=== PATIENT | female | born 1955 | race Caucasian/White ===

== ENCOUNTER 2016-11-10 12:02 | Inpatient (IN) | payer SELFPAY ==
[~2016-11-10] VITALS: Ht 167.6 cm; Wt 110.7 kg
[2016-11-10] VITALS (7 sets, daily range): BP systolic 133–177; BP diastolic 68–78; PULSE 86–99; RESP 22–34; TEMP 98.2–98.7; O2SAT 100
[~2016-11-10 12:02] MED LIST: ALPR.5 PO; CHOL4 PO; FOLI1 PO; HYDR-3533 PO; LEVE500 PO; METH10TA PO; METO25 PO; PROT40TA PO; SERT100 PO; THIA100T PO
[2016-11-10 12:15] LABS: MEAN CORPUSCULAR HGB CONC 28.8 % (32.0-36.0)
[2016-11-10] MEDS ORDERED: ONDANSETRON HCL 4 MG/2 ML VIAL IV PUSH ONE (12:15)
[2016-11-10] MEDS ORDERED: MORPHINE SULFATE 4 MG/ML INJ IV PUSH ONE (12:15)
[2016-11-10] MEDS ORDERED: PANTOPRAZOLE SODIUM 40 MG VIAL IV PUSH ONE (12:15)
[2016-11-10] MEDS: SODIUM CHLOR 0.9% 1000 ML INJ 1,000 ML IV SCH ×2 (12:26→15:21)
[2016-11-10 12:41] LABS: AUTOMATED NEUTROPHIL # 7.6 TH/MM3 (1.8-7.7); BASOPHIL # 0.1 TH/MM3 (0-0.2); BASOPHIL % 1.5 % (0.0-2.0); HEMATOCRIT 21.3 % (35.0-46.0); LYMPH % 10.9 % (9.0-44.0); MEAN CELL VOLUME 60.1 FL (80.0-100.0); MEAN CORPUSCULAR HEMOGLOBIN 17.3 PG (27.0-34.0); MONO % 3.9 % (0.0-8.0); NEUT % 83.7 % (16.0-70.0); PLATELET COUNT 390 TH/MM3 (150-450); RED BLOOD COUNT 3.54 MIL/MM3 (4.00-5.30); RED CELL DISTRIBUTION WIDTH 22.4 % (11.6-17.2); WHITE BLOOD COUNT 9.1 TH/MM3 (4.0-11.0)
[2016-11-10 12:47] LABS: HEMO FLAGS DIFF FINAL
[2016-11-10 13:01] LABS: PROTHROMBIN TIME - PATIENT 11.1 SEC (9.8-11.6)
[2016-11-10 13:03] LABS: ALT (GPT) 24 U/L (10-53); ANION GAP 22 MEQ/L (5-15); BICARBONATE 13.8 MEQ/L (21.0-32.0); BLOOD UREA NITROGEN 16 MG/DL (7-18); CHLORIDE 96 MEQ/L (98-107); GLOMERULAR FILTRATION RATE 56 ML/MIN (>89); POTASSIUM 3.4 MEQ/L (3.5-5.1); SODIUM (NA) 132 MEQ/L (136-145)
[2016-11-10 13:09] LABS: ALKALINE PHOSPHATASE 132 U/L (45-117); AST (GOT) 43 U/L (15-37); CREATINE KINASE 114 U/L (26-192); TOTAL BILIRUBIN ADULT 0.6 MG/DL (0.2-1.0)
--- NOTE | 2016-11-10 13:50 | PD ---
HPI Chief Complaint: Cardiac Complaint Time Seen by Provider: 12:11 Travel History International Travel<30 days: No Contact w/Intl Traveler<30days: No Traveled to known affect area: No History of Present Illness HPI 61-year-old female complains of chest pain and abdominal pain patient states that she started having intermittent chest pain abdominal pain for the past 2 weeks. Patient states that the pain is worse today. Patient has history of EtOH abuse. Last alcoholic drink was this morning. Patient states the pain is substernal pressure pain and sharp pain without radiation. Patient denies palpitation. Patient states that she also has epigastric pain also. Patient states that the epigastric pain is stabbing pain severe pain localized to epigastric area. Patient denies any pain radiation. Patient denies any nausea vomiting diarrhea. Patient has a chronic pain and was seen by pain management in the past. Patient has history of COPD. Patient denies any history of CAD. Patient has history hypertension. Patient denies history diabetes or dyslipidemia. Patient is a nonsmoker. On a scale of 1-10 the pain is a 10. PFSH Past Medical History Anxiety: Yes Depression: Yes Cancer: No Cardiovascular Problems: Yes Cerebrovascular Accident: No Diabetes: No Diminished Hearing: No Endocrine: No Genitourinary: No Hypertension: Yes Immune Disorder: No Musculoskeletal: Yes (CHRONIC BACK PAIN) Neurologic: Yes Psychiatric: Yes Reproductive: No Respiratory: Yes (COPD) Immunizations Current: Yes Seizures: Yes PNEUMOCCOCAL Vaccine (Year): 3 ?: Not Menopausal: Yes : 3 Para: 2 Ectopic : Yes Past Surgical History Pacemaker: No Other Surgery: Yes (UNKNOWN) Social History Alcohol Use: Yes (PINT OF [place]OD[place] DAY) Tobacco Use: No Substance Use: No Allergies-Medications (Allergen,Severity, Reaction): Coded Allergies: Naprosyn (Verified Allergy, Severe, unknown, 11/10/16) Sulfa (Verified Allergy, Severe, Hives, 11/10/16) *MDRO Multi-Drug Resistant Organism (Verified Adverse Reaction, Unknown, ) 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 Reported Meds & Prescriptions Reported Meds & Active Scripts Active Lortab 5 mg/325 mg (Hydrocodone/Acetaminophen 5 mg/325 mg) 1 Tab 1-2 Tab PO Q6H PRN Questran 4 Gm Pkt (Cholestyramine Resin) 4 Gm Soln 4 Gm PO Q6 PRN 14 Days Keppra (Levetriacetam) 500 Mg Tab 500 Mg PO TID 30 Days Vitamin B1 (Thiamine HCl) 100 Mg Tab 100 Mg PO DAILY 30 Days Protonix (Pantoprazole Sodium) 40 Mg Tabdr 40 Mg PO DAILY 30 Days Metoprolol Tartrate 25 mg (Metoprolol Tartrate) 25 Mg Tab 12.5 Mg PO Q12 30 Days Folate 1 Mg Tab (Folic Acid) 1 Mg Tab 1 Mg PO DAILY 30 Days Zoloft (Sertraline HCl) 100 Mg Tab 100 Mg PO DAILY PRN Methadone Hcl (Methadone HCl) 10 Mg Tab 5 Mg PO Q12HR PRN Xanax (Alprazolam) 0.5 Mg Tab 0.5 Mg PO Q8H PRN Review of Systems General / Constitutional: No: Fever Eyes: No: Visual changes HENT: No: Headaches Cardiovascular: Positive: Chest Pain or Discomfort Respiratory: No: Shortness of Breath Gastrointestinal: Positive: Abdominal Pain Genitourinary: No: Dysuria Musculoskeletal: No: Pain Skin: No Rash Neurologic: No: Weakness Psychiatric: No: Depression Endocrine: No: Polydipsia Hematologic/Lymphatic: No: Easy Bruising Physical Exam Narrative GENERAL: Well-nourished, well-developed patient. SKIN: Focused skin assessment warm/dry. HEAD: Normocephalic. EYES: No scleral icterus. No injection or drainage. NECK: Supple, trachea midline. No JVD or lymphadenopathy. CARDIOVASCULAR: Regular rate and rhythm without murmurs, gallops, or rubs. RESPIRATORY: Breath sounds equal bilaterally. No accessory muscle use. GASTROINTESTINAL: Abdomen soft, nondistended. Patient has mild to moderate tenderness on palpation epigastric area. No rebound tenderness. No mass. Rectal exam Hemoccult negative. MUSCULOSKELETAL: No cyanosis, or edema. BACK: Nontender without obvious deformity. No CVA tenderness. Neurologic exam normal. Data Data Last Documented VS Vital Signs Date Time Temp Pulse Resp B/P Pulse Ox O2 Delivery O2 Flow Rate FiO2 11/10/16 12:29 34 100 Nasal Cannula 2 11/10/16 12:29 96 155/68 11/10/16 12:05 98.2 Orders Electrocardiogram (11/10/16 12:11) Complete Blood Count With Diff (11/10/16 12:11) Comprehensive Metabolic Panel (11/10/16 12:11) Creatine Kinase (Cpk) (11/10/16 12:11) Troponin I (11/10/16 12:11) Prothrombin Time / Inr (Pt) (11/10/16 12:11) Act Partial Throm Time (Ptt) (11/10/16 12:11) Lipase (11/10/16 12:11) Urinalysis - C+S If Indicated (11/10/16 12:11) Chest, Single Ap (11/10/16 12:11) Iv Access Insert/Monitor (11/10/16 12:11) Ecg Monitoring (11/10/16 12:11) Oximetry (11/10/16 12:11) Alcohol (Ethanol) (11/10/16 12:11) Sodium Chlor 0.9% 1000 Ml Inj (Ns 1000 M (11/10/16 12:15) Pantoprazole Inj (Protonix Inj) (11/10/16 12:15) Morphine Inj (Morphine Inj) (11/10/16 12:15) Ondansetron Inj (Zofran Inj) (11/10/16 12:15) Ct Abd/Pel W Iv Contrast(Rout) (11/10/16 13:05) Ct Pulmonary Angiogram (11/10/16 13:05) Iohexol 350 Inj (Omnipaque 350 Inj) (11/10/16 13:52) Labs Laboratory Tests Test 11/10/16 11/10/16 12:30 13:56 White Blood Count 9.1 TH/MM3 Red Blood Count 3.54 MIL/MM3 Hemoglobin 6.1 GM/DL Hematocrit 21.3 % Mean Corpuscular Volume 60.1 FL Mean Corpuscular Hemoglobin 17.3 PG Mean Corpuscular Hemoglobin 28.8 % Concent Red Cell Distribution Width 22.4 % Platelet Count 390 TH/MM3 Mean Platelet Volume 8.2 FL Neutrophils (%) (Auto) 83.7 % Lymphocytes (%) (Auto) 10.9 % Monocytes (%) (Auto) 3.9 % Eosinophils (%) (Auto) 0.0 % Basophils (%) (Auto) 1.5 % Neutrophils # (Auto) 7.6 TH/MM3 Lymphocytes # (Auto) 1.0 TH/MM3 Monocytes # (Auto) 0.4 TH/MM3 Eosinophils # (Auto) 0.0 TH/MM3 Basophils # (Auto) 0.1 TH/MM3 CBC Comment DIFF FINAL Differential Comment Prothrombin Time 11.1 SEC Prothromb Time International 1.0 RATIO Ratio Activated Partial 24.0 SEC Thromboplast Time Sodium Level 132 MEQ/L Potassium Level 3.4 MEQ/L Chloride Level 96 MEQ/L Carbon Dioxide Level 13.8 MEQ/L Anion Gap 22 MEQ/L Blood Urea Nitrogen 16 MG/DL Creatinine 1.01 MG/DL Estimat Glomerular Filtration 56 ML/MIN Rate Random Glucose 66 MG/DL Calcium Level 8.5 MG/DL Total Bilirubin 0.6 MG/DL Aspartate Amino Transf 43 U/L (AST/SGOT) Alanine Aminotransferase 24 U/L (ALT/SGPT) Alkaline Phosphatase 132 U/L Total Creatine Kinase 114 U/L Troponin I LESS THAN 0.02 NG/ML Total Protein 9.2 GM/DL Albumin 3.7 GM/DL Lipase 234 U/L Ethyl Alcohol Level 131 MG/DL Urine Color YELLOW Urine Turbidity CLEAR Urine pH 6.0 Urine Specific [place] 1.018 Urine Protein TRACE mg/dL Urine Glucose (UA) NEG mg/dL Urine Ketones 40 mg/dL Urine Occult Blood NEG Urine Nitrite NEG Urine Bilirubin NEG Urine Urobilinogen LESS THAN 2.0 MG/DL Urine Leukocyte Esterase SMALL Urine RBC LESS THAN 1 /hpf Urine WBC 2 /hpf Urine Squamous Epithelial 1 /hpf Cells Microscopic Urinalysis Comment CULT NOT INDICATED MDM Medical Decision Making Medical Screen Exam Complete: Yes Emergency Medical Condition: Yes Interpretation(s) Last Impressions CT Angiography 11/10/16 1305 Signed Impressions: Service Date/Time: Thursday, November 10, 2016 13:34 - CONCLUSION: Negative for central pulmonary emboli. Vamshi Callejas MD FACR Abdomen/Pelvis CT 11/10/16 1305 Signed Impressions: Service Date/Time: Thursday, November 10, 2016 13:37 - CONCLUSION: Degenerative changes in lumbar spine as described above Venous thrombosis as described above with vena cava filter Etiology of epigastric pain is not apparent. Vamshi Callejas MD FACR Chest X-Ray 11/10/16 1211 Signed Impressions: Service Date/Time: Thursday, November 10, 2016 12:47 - CONCLUSION: 1. Mild cardiomegaly. Minimal basilar atelectasis. Prince Jaimes MD 1430 3 PM. CBC WBC 9.1. Hemoglobin 6.1 hematocrit 21.3. MCV 60.1. 83 neutrophil. Sodium 132. Potassium 3.4. Chloride 96. Bicarbonate 13.8. Anion gap 22. BUN 16. Creatinine 1.01. GFR 56. Glucose 66. Troponin is normal. Alcohol 131. UA is negative. Differential Diagnosis Differential diagnosis including angina, CO, PE, pneumothorax, gastritis, PUD, pancreatitis, cholecystitis, colitis, UTI, pyelonephritis, nephrolithiasis. Narrative Course 61-year-old female with chest pain and epigastric abdominal pain. History of EtOH abuse. Ken Arias MD Nov 10, 2016 13:50
[2016-11-10] MEDS ORDERED: IOHEXOL 350 MG/ML 10 ML VIAL (for RAD DIAG) IV ONE (13:52)
--- NOTE | 2016-11-10 13:58 | RADRPT ---
EXAM DATE/TIME: 11/10/2016 13:34 [facility] COMPARISON: No previous studies available for comparison. INDICATIONS : Evaluate for embolism, chest pains, and short of breath. IV CONTRAST: 99 cc Omnipaque 350 (iohexol) IV RADIATION DOSE: 28.05 CTDIvol (mGy) MEDICAL HISTORY : Seizures. Cardiovascular disease Hypertension. SURGICAL HISTORY : None. ENCOUNTER: Initial ACUITY: 1 week PAIN SCALE: 10/10 LOCATION: Left chest TECHNIQUE: Volumetric scanning of the chest was performed using a pulmonary embolism protocol MIP images were re constructed. Using automated exposure control and adjustment of the mA and/or kV according to patien t size, radiation dose was kept as low as reasonably achievable to obtain optimal diagnostic quality images. DICOM format image data is available electronically for review and comparison. FINDINGS: There are no suspicious lung lesions identified. There is no evidence for central pulmonary emboli Moderate LAD calcifications are noted. There is no pericardial effusion. There is no mediastinal ad enopathy. The large hiatal l hernia is noted. CONCLUSION: Negative for central pulmonary emboli. Vamshi Callejas MD FACR on November 10, 2016 at 13:54 Board Certified Radiologist. This report was verified electronically.
--- NOTE | 2016-11-10 14:03 | RADRPT ---
EXAM DATE/TIME: 11/10/2016 13:37 [facility] COMPARISON: CT ABDOMEN & PELVIS W CONTRAST, April 07, 2011, 17:01. INDICATIONS : Shortness of breath, left sided abdominal pain. IV CONTRAST: 99 cc Omnipaque 350 (iohexol) IV ; Cumulative dose for multiple exams. ORAL CONTRAST: No oral contrast ingested. RADIATION DOSE: 28.17 CTDIvol (mGy) ; Combined studies - Thorax/Abdomen/Pelvis MEDICAL HISTORY : Cardiovascular disease. Seizures. Hypertension. SURGICAL HISTORY : None. ENCOUNTER: Initial ACUITY: 1 week PAIN SCALE: 10/10 LOCATION: Left abdominal TECHNIQUE: Volumetric scanning of the abdomen and pelvis was performed. Using automated exposure control and ad justment of the mA and/or kV according to patient size, radiation dose was kept as low as reasonably achievable to obtain optimal diagnostic quality images. DICOM format image data is available electro nically for review and comparison. FINDINGS: LOWER LUNGS: The visualized lower lungs are clear. GE junctional is unremarkable LIVER: Homogeneous density without lesion. There is no dilation of the biliary tree single gallstone is not ed. SPLEEN: Normal size without lesion. PANCREAS: Within normal limits. ADRENAL GLANDS: Within normal limits. R KIDNEY: Normal without stones L KIDNEY: Parapelvic cysts are noted without stones CECUM : The region of the cecum and terminal ileum appear normal. RETROPERITONEAL: There is no adenopathy. Vena cava filter is noted. PELVIS: Scattered diverticuli are noted without diverticulitis. 2 cm right adnexal cyst. ABDOMINAL WALL: Intact without hernia BONE WINDOWS: Degenerative changes are present in the lumbar spine. Nonocclusive thrombus in the right common femoral vein, right iliac vein and lower inferior vena cava . CONCLUSION: Degenerative changes in lumbar spine as described above Venous thrombosis as described above with vena cava filter Etiology of epigastric pain is not apparent. Vamshi Callejas MD FACR on November 10, 2016 at 13:56 Board Certified Radiologist. This report was verified electronically.
--- NOTE | 2016-11-10 14:10 | RADRPT ---
EXAM DATE/TIME: 11/10/2016 12:47 [facility] COMPARISON: CHEST SINGLE AP, October 22, 2014, 22:41. INDICATIONS : Left sided chest pain and shortness of breath since yesterday afternoon. MEDICAL HISTORY : None. SURGICAL HISTORY : None. ENCOUNTER: Initial ACUITY: 1 day PAIN SCORE: 8/10 LOCATION: Left chest and abdomen. FINDINGS: A single view of the chest demonstrates mild cardiomegaly. Mild basilar opacity most characteristic o f atelectasis. No effusion. No pneumothorax. Mild scoliosis.. CONCLUSION: 1. Mild cardiomegaly. Minimal basilar atelectasis. Prince Jaimes MD on November 10, 2016 at 14:06 Board Certified Radiologist. This report was verified electronically.
[2016-11-10 14:11] LABS: BLOOD, URINE NEG (NEG); GLUCOSE,URINE NEG (NEG); KETONE, URINE 40 mg/dL (NEG); NITRITE,URINE NEG (NEG); SQUAMOUS EPITHELIAL CELL URINE 1 /hpf (0-5); URINE COLOR YELLOW (YELLW/STRAW)
[2016-11-10 14:12] LABS: COMMENT (UR) CULT NOT INDICATED; CULTURE IF INDICATED CULT NOT INDICATED
[2016-11-10] MEDS ORDERED: SODIUM BICARBONATE 8.4% INJ 50 MEQ/50 ML SYR IV PUSH ONE (14:45)
[2016-11-10] MEDS ORDERED: SODIUM BICARBONATE IV SCH (14:45)
[2016-11-10] MEDS ORDERED: DEXT 5% IV SCH (14:45)
[2016-11-10] MEDS ORDERED: NACL 0.45% IV SCH (14:45)
[2016-11-10] MEDS: NACL 0.45% IV SCH ×2 (15:30→16:54)
[2016-11-10] MEDS: DEXT 5% IV SCH ×2 (15:30→16:54)
[2016-11-10] MEDS: SODIUM BICARBONATE IV SCH ×2 (15:30→16:54)
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
[2016-11-10] MEDS ORDERED: NALOXONE HCL 0.4 MG/ML AMP IV PRN (15:45)
[2016-11-10] MEDS ORDERED: FLUMAZENIL 0.5 MG/5 ML VIAL IV PUSH PRN (15:45)
[2016-11-10] MEDS ORDERED: LORazepam 2 MG TAB PO PRN (15:45)
[2016-11-10] MEDS ORDERED: LORazepam 2 MG/ML VIAL IV PUSH PRN ×4 (15:45)
[2016-11-10] MEDS ORDERED: ACETAMINOPHEN/HYDROcodone 325 MG/5 MG TAB PO PRN (15:45)
[2016-11-10] MEDS ORDERED: SODIUM CHLORIDE 0.9% FLUSH 10 ML FLUSH IV FLUSH PRN (15:45)
[2016-11-10] MEDS ORDERED: ACETAMINOPHEN 325 MG TAB PO PRN (15:45)
[2016-11-10] MEDS ORDERED: LORazepam 1 MG TAB PO PRN (15:45)
[2016-11-10] MEDS: MULTIVITAMIN TAB PO SCH (16:00)
[2016-11-10] MEDS: FOLIC ACID 1 MG TAB PO SCH (16:00)
[2016-11-10] MEDS: THIAMINE HCL 100 MG TAB PO SCH (16:00)
[2016-11-10] MEDS: D5-1/2 NS + KCL 20 MEQ INJ 1,000 ML IV SCH (16:15)
--- NOTE | 2016-11-10 16:30 | PD.CONS ---
HPI History of Present Illness This is a 61 year old female with hx DVT s/p vena cava filter, presented to ER for chest pain. The pain started a few days ago, anterior left chest region, she cannot describe character, radiates to left flank. The pain was constnat. SHe started drinking ETOH for the pain and then stopped drinking b/c she started throwing up, no blood. She does admit hearburn and reflux and says she is supposed to take medication but doesn't because it is expensive. Takes ambien, lortab, xanax, warfarin. She hasn't been taking any of her medications b/c she canot afford. Denies NSAID use. SHe drinks a pint daily. She c/o postnasal drip making her stomach sour. Denies weight loss. Admits constipation. Denies diarrhea, blood in stool, SHe has had EGD and colonoscopy, thinks in the last year at the [facility]. Polyp was found. She cannot recall further details. 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 Family History noncontributory Social History drinks pint daily no tobacco no illicit drug use Review of Systems Constitutional: DENIES: Fever Ears, nose, mouth, throat: DENIES: Hearing loss Respiratory: DENIES: Cough Cardiovascular: COMPLAINS OF: Chest pain, Lower Extremity Edema, DENIES: Palpitations Gastrointestinal: COMPLAINS OF: Constipation, Nausea, Vomiting, Heartburn, DENIES: Abdominal pain, Black stools, Bloody stools, Diarrhea, Difficulty Swallowing, Hematemesis Genitourinary: DENIES: Hematuria Musculoskeletal: COMPLAINS OF: Back pain Integumentary: DENIES: Rash Neurologic: COMPLAINS OF: Headache Psychiatric: DENIES: Confusion GI Exam Vitals I&O Vital Signs Date Time Temp Pulse Resp B/P Pulse Ox O2 Delivery O2 Flow Rate FiO2 11/10/16 15:59 18 11/10/16 12:29 34 100 Nasal Cannula 2 11/10/16 12:29 96 30 155/68 100 Nasal Cannula 2 11/10/16 12:11 97 22 99 Nasal Cannula 2 11/10/16 12:05 98.2 99 22 164/[address] Angiography 11/10/16 1305 Signed Impressions: Service Date/Time: Thursday, November 10, 2016 13:34 - CONCLUSION: Negative for central pulmonary emboli. Vamshi Callejas MD FACR Abdomen/Pelvis CT 11/10/16 1305 Signed Impressions: Service Date/Time: Thursday, November 10, 2016 13:37 - CONCLUSION: Degenerative changes in lumbar spine as described above Venous thrombosis as described above with vena cava filter Etiology of epigastric pain is not apparent. Vamshi Callejas MD FACR Chest X-Ray 11/10/16 1211 Signed Impressions: Service Date/Time: Thursday, November 10, 2016 12:47 - CONCLUSION: 1. Mild cardiomegaly. Minimal basilar atelectasis. Prince Jaimes MD Laboratory Test 11/10/16 11/10/16 12:30 13:56 White Blood Count 9.1 TH/MM3 Red Blood Count 3.54 MIL/MM3 Hemoglobin 6.1 GM/DL Hematocrit 21.3 % Mean Corpuscular Volume 60.1 FL Mean Corpuscular Hemoglobin 17.3 PG Mean Corpuscular Hemoglobin 28.8 % Concent Red Cell Distribution Width 22.4 % Platelet Count 390 TH/MM3 Mean Platelet Volume 8.2 FL Neutrophils (%) (Auto) 83.7 % Lymphocytes (%) (Auto) 10.9 % Monocytes (%) (Auto) 3.9 % Eosinophils (%) (Auto) 0.0 % Basophils (%) (Auto) 1.5 % Neutrophils # (Auto) 7.6 TH/MM3 Lymphocytes # (Auto) 1.0 TH/MM3 Monocytes # (Auto) 0.4 TH/MM3 Eosinophils # (Auto) 0.0 TH/MM3 Basophils # (Auto) 0.1 TH/MM3 CBC Comment DIFF FINAL Differential Comment Prothrombin Time 11.1 SEC Prothromb Time International 1.0 RATIO Ratio Activated Partial 24.0 SEC Thromboplast Time Sodium Level 132 MEQ/L Potassium Level 3.4 MEQ/L Chloride Level 96 MEQ/L Carbon Dioxide Level 13.8 MEQ/L Anion Gap 22 MEQ/L Blood Urea Nitrogen 16 MG/DL Creatinine 1.01 MG/DL Estimat Glomerular Filtration 56 ML/MIN Rate Random Glucose 66 MG/DL Calcium Level 8.5 MG/DL Total Bilirubin 0.6 MG/DL Aspartate Amino Transf 43 U/L (AST/SGOT) Alanine Aminotransferase 24 U/L (ALT/SGPT) Alkaline Phosphatase 132 U/L Total Creatine Kinase 114 U/L Troponin I LESS THAN 0.02 NG/ML Total Protein 9.2 GM/DL Albumin 3.7 GM/DL Lipase 234 U/L Ethyl Alcohol Level 131 MG/DL Urine Color YELLOW Urine Turbidity CLEAR Urine pH 6.0 Urine Specific [place] 1.018 Urine Protein TRACE mg/dL Urine Glucose (UA) NEG mg/dL Urine Ketones 40 mg/dL Urine Occult Blood NEG Urine Nitrite NEG Urine Bilirubin NEG Urine Urobilinogen LESS THAN 2.0 MG/DL Urine Leukocyte Esterase SMALL Urine RBC LESS THAN 1 /hpf Urine WBC 2 /hpf Urine Squamous Epithelial 1 /hpf Cells Microscopic Urinalysis Comment CULT NOT INDICATED Physical Examination HEENT: PERRL; normocephalic; atraumatic; no jaundice. CHEST: CTA CARDIAC: RRR ABDOMEN: Soft, nondistended, LUQ & epigastric TTP; no hepatosplenomegaly; bowel sounds are present in all four quadrants. EXTREMITIES: No clubbing, cyanosis, or edema. SKIN: Normal; no rash; no jaundice. SMOKING PIPES CLEANER: No focal deficits; alert and oriented times three. Assessment and Plan Plan ASSESSMENT - anemia - severe, microcytic hypochromic. hgb 6.1 on admission, pending transfusion. Denies blood in stool. takes coumadin but has not taken any meds recently b/c she cannot afford them. EGD/colonoscopy distal reflux esophagitis, mild candidiasis in the upper part of the esophagus, 3 cm sliding hiatal hernia, mild to moderate gastritis in the antrum of the stomach, normal duodenum biopsy for celiac, 6 mm flat colon polyp in sigmoid colon, s/p cold snare polypectomy, mild diverticulosis in the descending and sigmoid colon, small internal hemorrhoids, otherwise normal colonoscopy, pathology small bowel biopsy normal, negative for celiac, gastric antrum mild chronic gastritis negative for h. pylori, ge junction squamocolumnar mucosa with mild chronic activity, negative for sanchez' s, sigmoid polyp hyperplastic polyp. Prior to that she did have tubular adenoma in 2013. - n/v- c/o postnasal drip and "sour stomach." no hematemesis. Hx GERD. - atypical chest pain - anterior left chest region, cannot further characterize - LUQ pain - unclear etiology. Lipase WNL. CT 11-10-16--> degenerative changes in lumbar spine, venous thrombosis as described above with vena cava filter, etiology of epigastric pain is not apparent. - left flank pain - CT as above - non occlusive thrombosis - left common femoral vein, right iliac vein, lower inferior vena cava. s/p vena cava filter. PLAN - iron studies - EGD Sunday - clears for now - NPO after midnight Sunday - obtain consents - hemoccult - continue PPI - DT precautions - HH q6h x 4 - transfuse as needed - if neg EGD consider capsule endoscopy - further recommendations to follow This pt seen by myself and Dr Kelly and this note is written on his behalf Mary Betts Nov 10, 2016 16:30
[2016-11-10] MEDS: ACETAMINOPHEN/HYDROcodone 325 MG/5 MG TAB PO PRN ×2 (16:59→21:03)
[2016-11-10] MEDS: levETIRAcetam 500 MG TAB PO SCH (17:46)
[2016-11-10] MEDS: MORPHINE SULFATE 4 MG/ML INJ IV PRN ×2 (17:48→22:41)
[2016-11-10 18:47] LABS: REVIEW FLAG FINAL
[2016-11-10 18:49] LABS: HEMATOCRIT 20.1 % (35.0-46.0)
[2016-11-10 19:07] LABS: ANION GAP 20 MEQ/L (5-15); BICARBONATE 15.4 MEQ/L (21.0-32.0); BLOOD UREA NITROGEN 15 MG/DL (7-18); CHLORIDE 97 MEQ/L (98-107); GLOMERULAR FILTRATION RATE 68 ML/MIN (>89); MAGNESIUM 1.8 MG/DL (1.5-2.5); POTASSIUM 3.7 MEQ/L (3.5-5.1); SODIUM (NA) 132 MEQ/L (136-145)
[2016-11-10 19:11] LABS: CREATINE KINASE 130 U/L (26-192)
[2016-11-10] MEDS: SODIUM CHLORIDE 0.9% FLUSH 10 ML FLUSH IV FLUSH SCH (21:02)
[2016-11-10] MEDS: METOPROLOL TARTRATE 25 MG TAB PO SCH (21:02)
[2016-11-10] MEDS: PANTOPRAZOLE SODIUM 40 MG VIAL IV SCH (21:02)
[2016-11-10] MEDS: ONDANSETRON HCL 4 MG/2 ML VIAL IVP PRN (21:09)
[2016-11-10] MEDS ORDERED: Vancomycin Consult Pharmacy 1 EA OTHER SCH (22:00)
[2016-11-10] MEDS ORDERED: CHLORHEXIDINE GLUCONATE 2 % 1 PACK (2 CLOTHS)(extra cloths) TOPICAL PRN (22:00)
[2016-11-10] MEDS: PIPERACIL-TAZO 3.375 GM PREMIX 50 ML IV SCH (22:00)
[2016-11-10] MEDS ORDERED: PHARMACY ORDERED LAB ONE (22:00)
[2016-11-11] VITALS (13 sets, daily range): BP systolic 112–178; BP diastolic 56–94; PULSE 57–75; RESP 13–28; TEMP 97.4–98.6; O2SAT 90–100
[2016-11-11] MEDS ORDERED: HYDROmorphone HCL PF 1 MG/ML VIAL IV PUSH ONE (01:15)
[2016-11-11] MEDS: D5-1/2 NS + KCL 20 MEQ INJ 1,000 ML IV SCH ×3 (02:15→22:15)
[2016-11-11] MEDS: PIPERACIL-TAZO 3.375 GM PREMIX 50 ML IV SCH ×4 (03:22→22:00)
[2016-11-11] MEDS: VANCOMYCIN INJ 1,600 MG in SODIUM CHLORID 0.9% 500 ML INJ 500 ML IV SCH ×2 (03:22→17:53)
[2016-11-11] MEDS: CHLORHEXIDINE GLUCONATE 2 % 1 PACK (2 CLOTHS)(taper/protocol) TOPICAL SCH (04:00)
[2016-11-11] MEDS: HYDROmorphone HCL PF 1 MG/ML VIAL IV PUSH PRN ×2 (05:24→10:15)
[2016-11-11 06:24] LABS: AUTOMATED NEUTROPHIL # 5.9 TH/MM3 (1.8-7.7); BASOPHIL # 0.1 TH/MM3 (0-0.2); EOSINOPHIL % 0.6 % (0.0-4.0); LYMPH % 14.6 % (9.0-44.0); LYMPHOCYTE # 1.1 TH/MM3 (1.0-4.8); MEAN CORPUSCULAR HEMOGLOBIN 20.7 PG (27.0-34.0); MEAN CORPUSCULAR HGB CONC 30.9 % (32.0-36.0); MONO % 3.9 % (0.0-8.0); NEUT % 79.9 % (16.0-70.0); PLATELET COUNT 290 TH/MM3 (150-450); RED BLOOD COUNT 4.18 MIL/MM3 (4.00-5.30); WHITE BLOOD COUNT 7.4 TH/MM3 (4.0-11.0)
[2016-11-11 06:33] LABS: HEMO FLAGS AUTO DIFF
[2016-11-11 06:48] LABS: ALT (GPT) 19 U/L (10-53); ANION GAP 13 MEQ/L (5-15); AST (GOT) 25 U/L (15-37); BICARBONATE 24.9 MEQ/L (21.0-32.0); BLOOD UREA NITROGEN 11 MG/DL (7-18); CHLORIDE 95 MEQ/L (98-107); GLOMERULAR FILTRATION RATE 67 ML/MIN (>89); MAGNESIUM 1.9 MG/DL (1.5-2.5); POTASSIUM 3.4 MEQ/L (3.5-5.1); SODIUM (NA) 133 MEQ/L (136-145)
[2016-11-11 06:52] LABS: ALKALINE PHOSPHATASE 109 U/L (45-117); CREATINE KINASE 136 U/L (26-192); TOTAL BILIRUBIN ADULT 1.4 MG/DL (0.2-1.0)
[2016-11-11] MEDS: PANTOPRAZOLE SODIUM 40 MG VIAL IV SCH ×2 (08:33→22:27)
[2016-11-11] MEDS: FOLIC ACID 1 MG TAB PO SCH (08:33)
[2016-11-11] MEDS: SODIUM CHLORIDE 0.9% FLUSH 10 ML FLUSH IV FLUSH SCH ×2 (08:33→22:27)
[2016-11-11] MEDS: METOPROLOL TARTRATE 25 MG TAB PO SCH ×2 (08:34→22:27)
[2016-11-11] MEDS: levETIRAcetam 500 MG TAB PO SCH ×3 (08:34→17:52)
[2016-11-11] MEDS: SERTRALINE HCL 100 MG TAB PO SCH (08:34)
[2016-11-11] MEDS: MULTIVITAMIN TAB PO SCH (08:34)
[2016-11-11] MEDS: THIAMINE HCL 100 MG TAB PO SCH (08:34)
[2016-11-11] MEDS: ACETAMINOPHEN/HYDROcodone 325 MG/5 MG TAB PO PRN ×3 (08:35→22:26)
[2016-11-11] MEDS: ONDANSETRON HCL 4 MG/2 ML VIAL IVP PRN (08:35)
[2016-11-11] MEDS ORDERED: POTASSIUM CHLORIDE 10 MEQ CONTROLLED RELEASE TAB PO ONE (08:45)
[2016-11-11 08:51] LABS: OVALOCYTES 1+ (NORMAL); PLATELET ESTIMATE SMEAR NORMAL (NORMAL); PLATELET MORPHOLOGY ENLARGED (NORMAL); SCAN/DIFF AUTO DIFF CONFIRMED
[2016-11-11] MEDS ORDERED: LORazepam 1 MG TAB PO SCH (09:00)
[2016-11-11] MEDS ORDERED: SERTRALINE HCL 100 MG TAB PO SCH (09:00)
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
--- NOTE | 2016-11-11 10:55 | HHI.GIFU ---
Subjective Remarks Resting in bed. Continues to have LUQ pain. States her pain meds are not working well for the pain. Had one episode of vomiting overnight, states this was a green bilious material without blood noted. (Saira Hernandez) Objective Vitals I&O Vital Signs Date Time Temp Pulse Resp B/P Pulse Ox O2 Delivery O2 Flow Rate FiO2 11/11/16 08:22 100 Nasal Cannula 3.00 11/11/16 06:00 68 11/11/16 05:54 20 11/11/16 04:00 60 11/11/16 04:00 98.0 60 15 178/83 97 11/11/16 02:00 70 11/11/16 01:56 20 11/11/16 00:00 98.0 75 28 158/94 100 11/11/16 00:00 75 11/10/16 22:46 28 11/10/16 22:08 98.3 86 32 177/78 100 11/10/16 22:03 28 11/10/16 22:00 87 11/10/16 20:00 98 11/10/16 20:00 98.7 98 24 172/73 100 11/10/16 18:00 99 11/10/16 17:35 98.4 96 26 133/70 100 11/10/16 15:59 18 11/10/16 12:29 34 100 Nasal Cannula 2 11/10/16 12:29 96 30 155/68 100 Nasal Cannula 2 11/10/16 12:11 97 22 99 Nasal Cannula 2 11/10/16 12:05 98.2 99 22 164/72 100 I/O 11/10/16 11/10/16 11/10/16 11/11/16 11/11/16 11/11/16 07:00 15:00 23:00 07:00 15:00 23:00 Intake Total 910 ml 1639 ml Output Total 800 ml 600 ml Balance 110 ml 1039 ml Intake Oral 360 ml 240 ml IV Total 300 ml 1027 ml Packed Cells 250 ml 372 ml Output Urine Total 600 ml 600 ml Emesis 200 ml # Voids 1 2 Laboratory Laboratory Tests Test 11/10/16 11/10/16 11/10/16 11/10/16 12:30 13:56 18:00 18:14 White Blood Count 9.1 Red Blood Count 3.54 Hemoglobin 6.1 5.6 Hematocrit 21.3 20.1 Mean Corpuscular Volume 60.1 Mean Corpuscular Hemoglobin 17.3 Mean Corpuscular Hemoglobin 28.8 Concent Red Cell Distribution Width 22.4 Platelet Count 390 Mean Platelet Volume 8.2 Neutrophils (%) (Auto) 83.7 Lymphocytes (%) (Auto) 10.9 Monocytes (%) (Auto) 3.9 Eosinophils (%) (Auto) 0.0 Basophils (%) (Auto) 1.5 Neutrophils # (Auto) 7.6 Lymphocytes # (Auto) 1.0 Monocytes # (Auto) 0.4 Eosinophils # (Auto) 0.0 Basophils # (Auto) 0.1 CBC Comment DIFF FINAL Differential Comment Prothrombin Time 11.1 Prothromb Time International 1.0 Ratio Activated Partial 24.0 Thromboplast Time Sodium Level 132 132 Potassium Level 3.4 3.7 Chloride Level 96 97 Carbon Dioxide Level 13.8 15.4 Anion Gap 22 20 Blood Urea Nitrogen 16 15 Creatinine 1.01 0.85 Estimat Glomerular Filtration 56 68 Rate Random Glucose 66 59 Calcium Level 8.5 7.9 Total Bilirubin 0.6 Aspartate Amino Transf 43 (AST/SGOT) Alanine Aminotransferase 24 (ALT/SGPT) Alkaline Phosphatase 132 Total Creatine Kinase 114 130 Troponin I LESS THAN 0.02 LESS THAN 0.02 Total Protein 9.2 Albumin 3.7 Lipase 234 Ethyl Alcohol Level 131 Urine Color YELLOW Urine Turbidity CLEAR Urine pH 6.0 Urine Specific [place] 1.018 Urine Protein TRACE Urine Glucose (UA) NEG Urine Ketones 40 Urine Occult Blood NEG Urine Nitrite NEG Urine Bilirubin NEG Urine Urobilinogen LESS THAN 2.0 Urine Leukocyte Esterase SMALL Urine RBC LESS THAN 1 Urine WBC 2 Urine Squamous Epithelial 1 Cells Microscopic Urinalysis Comment CULT NOT INDICATED Nasal Screen MRSA (PCR) MRSA DETECTED Lactic Acid Level 4.1 Phosphorus Level 3.1 Magnesium Level 1.8 B-Type Natriuretic Peptide 48 B-Hydroxybutyrate 3.68 Test 11/10/16 11/11/16 11/11/16 20:42 04:12 06:11 Blood Type A NEGATIVE Antibody Screen NEGATIVE Crossmatch Leukocyte-Reduced Red Blood Cells Blood Bank Comment White Blood Count 7.4 Red Blood Count 4.18 Hemoglobin 8.7 Hematocrit 28.0 Mean Corpuscular Volume 67.0 Mean Corpuscular Hemoglobin 20.7 Mean Corpuscular Hemoglobin 30.9 Concent Red Cell Distribution Width 29.0 Platelet Count 290 Mean Platelet Volume 8.5 Neutrophils (%) (Auto) 79.9 Lymphocytes (%) (Auto) 14.6 Monocytes (%) (Auto) 3.9 Eosinophils (%) (Auto) 0.6 Basophils (%) (Auto) 1.0 Neutrophils # (Auto) 5.9 Lymphocytes # (Auto) 1.1 Monocytes # (Auto) 0.3 Eosinophils # (Auto) 0.0 Basophils # (Auto) 0.1 CBC Comment AUTO DIFF Differential Comment AUTO DIFF CONFIRMED Platelet Estimate NORMAL Platelet Morphology Comment ENLARGED Ovalocytes 1+ Sodium Level 133 Potassium Level 3.4 Chloride Level 95 Carbon Dioxide Level 24.9 Anion Gap 13 Blood Urea Nitrogen 11 Creatinine 0.86 Estimat Glomerular Filtration 67 Rate Random Glucose 74 Calcium Level 7.8 Phosphorus Level 2.9 Magnesium Level 1.9 Total Bilirubin 1.4 Aspartate Amino Transf 25 (AST/SGOT) Alanine Aminotransferase 19 (ALT/SGPT) Alkaline Phosphatase 109 Total Creatine Kinase 136 Troponin I 0.02 Total Protein 8.2 Albumin 3.3 Lipase 173 Lactic Acid Level 1.0 Date/Time Procedure Status Source Growth 11/10/16 18:14 Aerobic Blood Culture Resulted Blood Peripheral Pending 11/10/16 18:14 Anaerobic Blood Culture - Final Resulted Blood Peripheral QNS - SEE AEROBE REPORT Imaging Last Impressions CT Angiography 11/10/16 1305 Signed Impressions: Service Date/Time: Thursday, November 10, 2016 13:34 - CONCLUSION: Negative for central pulmonary emboli. Vamshi Callejas MD FACR Abdomen/Pelvis CT 11/10/16 1305 Signed Impressions: Service Date/Time: Thursday, November 10, 2016 13:37 - CONCLUSION: Degenerative changes in lumbar spine as described above Venous thrombosis as described above with vena cava filter Etiology of epigastric pain is not apparent. Vamshi Callejas MD FACR Chest X-Ray 11/10/16 1211 Signed Impressions: Service Date/Time: Thursday, November 10, 2016 12:47 - CONCLUSION: 1. Mild cardiomegaly. Minimal basilar atelectasis. Prince Jaimes MD Physical Exam HEENT: Normocephalic; atraumatic; no jaundice. CHEST: CTA CARDIAC: RRR. ABDOMEN: Soft, nondistended, LUQ tenderness; no hepatosplenomegaly; bowel sounds are present in all four quadrants. EXTREMITIES: No clubbing, cyanosis, or edema. SKIN: Normal; no rash; no jaundice. CAREER DEVELOPMENT ASSOCIATE: No focal deficits; alert and oriented times three. (HernandezSaira) Assessment and Plan Plan ASSESSMENT - Severe Anemia, microcytic hypochromic. Hgb 6.1/21.3, dropped to 5.6/20.1. Denies blood in stool. Supposed to be on PPI/Coumadin- but has been off of these meds, as she cannot afford them. She was evaluated with EGD/Colonoscopy in May of 2016 which revealed distal reflux esophagitis, mild candidiasis in the upper part of the esophagus, 3 cm sliding hiatal hernia, mild to moderate gastritis in the antrum of the stomach, normal duodenum biopsy for celiac, 6 mm flat colon polyp in sigmoid colon, s/p cold snare polypectomy, mild diverticulosis in the descending and sigmoid colon, small internal hemorrhoids, otherwise normal colonoscopy, pathology small bowel biopsy normal, negative for celiac, gastric antrum mild chronic gastritis negative for h. pylori, ge junction squamocolumnar mucosa with mild chronic activity, negative for sanchez's, sigmoid polyp hyperplastic polyp. Prior to that she did have tubular adenoma in 2013. S/P 2 units PRBC, HH 8.7/28.0. PPI. N/V x 1 overnight- bilious- no obvious bleeding. VSS. She does drink 1 pint of ETOH, but does no hx of varices. Will plan for EGD Sunday. Iron studies/ferritin pending. - N/V, patient attributes this to frequent postnasal drip and "sour stomach." No hematemesis. Hx GERD. Not taking PPI. EGD Sunday. - LUQ pain. Lipase WNL. Abdomen/Pelvis CT (11/10/16)-----> Degenerative changes in lumbar spine as described above Venous thrombosis as described above with vena cava filter Etiology of epigastric pain is not apparent. - Atypical chest pain, anterior left chest/LUQ pain. Not having chest pain at this time, but continues to have LUQ pain. Troponin I okay. - Non occlusive thrombosis - left common femoral vein, right iliac vein, lower inferior vena cava. s/p vena cava filter. Pt has hx of DVT and reports she is supposed to be on coumadin but cannot afford this. - Hyponatremia. Per attending. PLAN - Plan for EGD Sunday - Obtain consents - NPO after MN - Iron Studies, Ferritin - PPI - Monitor HH - Transfuse as needed - Supportive care - Further recommendations - Consider Capsule Endoscopy if EGD if negative - This pt seen by myself and Dr Egan and this note is written on his behalf (Saira Hernandez) Physician Comments patient was seen and examined, agree with above note, plan for EGD Sunday ( Claude Egan MD) Saira Hernandez Nov 11, 2016 10:55 Claude Egan MD Nov 11, 2016 16:50
--- NOTE | 2016-11-11 11:54 | EKG ---
Date Performed: 11/10/2016 Time Performed: 18:25:47 PTAGE: 61 years EKG: SINUS TACHYCARDIA INCOMPLETE RIGHT BUNDLE BRANCH BLOCK Since previous tracing, no significa nt change noted ABNORMAL RHYTHM ECG PREVIOUS TRACING : 11/10/2016 12.07 DOCTOR: Vinh Loomis Interpretating Date/Time 11/11/2016 11:53:30
--- NOTE | 2016-11-11 11:54 | EKG ---
Date Performed: 11/11/2016 Time Performed: 00:33:12 PTAGE: 61 years EKG: Sinus rhythm Since previous tracing, no significant change noted Normal ECG PREVIOUS TRACING : 11/10/2016 18.25 DOCTOR: Vinh Loomis Interpretating Date/Time 11/11/2016 11:53:13
[2016-11-11 11:56] LABS: HEMATOCRIT 26.4 % (35.0-46.0)
[2016-11-11 11:57] LABS: REVIEW FLAG FINAL
--- NOTE | 2016-11-11 12:00 | EKG ---
Date Performed: 11/10/2016 Time Performed: 12:07:57 PTAGE: 61 years EKG: SINUS TACHYCARDIA INCOMPLETE RIGHT BUNDLE BRANCH BLOCK Compared to previous tracing, nonspe cific ST-T changes have resolved. ABNORMAL RHYTHM ECG PREVIOUS TRACING : 10/22/2014 18.44 DOCTOR: Vinh Loomis Interpretating Date/Time 11/11/2016 12:00:12
[2016-11-11] MEDS: chlordiazePOXIDE 25 MG CAP PO SCH ×2 (16:58→22:27)
[2016-11-11 18:39] LABS: TRANSFERRIN IRON PROFILE 336 MG/DL (200-360)
[2016-11-11 18:42] LABS: FERRITIN 18 NG/ML (8-252)
[2016-11-11 21:10] LABS: MEAN CORPUSCULAR HGB CONC 29.7 % (32.0-36.0)
[2016-11-12] VITALS (7 sets, daily range): BP systolic 67–149; BP diastolic 56–81; PULSE 57–76; RESP 17–24; TEMP 97–98.9; O2SAT 95–98
[2016-11-12] MEDS: ACETAMINOPHEN/HYDROcodone 325 MG/5 MG TAB PO PRN ×3 (02:42→21:25)
[2016-11-12] MEDS: CHLORHEXIDINE GLUCONATE 2 % 1 PACK (2 CLOTHS)(taper/protocol) TOPICAL SCH (04:00)
[2016-11-12] MEDS: PIPERACIL-TAZO 3.375 GM PREMIX 50 ML IV SCH (05:16)
[2016-11-12] MEDS: D5-1/2 NS + KCL 20 MEQ INJ 1,000 ML IV SCH (05:17)
[2016-11-12] MEDS: HYDROmorphone HCL PF 1 MG/ML VIAL IV PUSH PRN ×4 (05:17→23:11)
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
[2016-11-12] MEDS: THIAMINE HCL 100 MG TAB PO SCH (08:34)
[2016-11-12] MEDS: FERROUS SULFATE 325 MG (65 MG ELEMENTAL IRON) TAB PO SCH (08:34)
[2016-11-12] MEDS: levETIRAcetam 500 MG TAB PO SCH ×3 (08:34→18:01)
[2016-11-12] MEDS: SERTRALINE HCL 100 MG TAB PO SCH (08:34)
[2016-11-12] MEDS: chlordiazePOXIDE 25 MG CAP PO SCH (08:34)
[2016-11-12] MEDS: FOLIC ACID 1 MG TAB PO SCH (08:34)
[2016-11-12] MEDS: METOPROLOL TARTRATE 25 MG TAB PO SCH ×2 (08:34→21:25)
[2016-11-12] MEDS: MULTIVITAMIN TAB PO SCH (08:34)
[2016-11-12] MEDS: PANTOPRAZOLE SODIUM 40 MG VIAL IV SCH ×2 (08:35→21:25)
[2016-11-12] MEDS: SODIUM CHLORIDE 0.9% FLUSH 10 ML FLUSH IV FLUSH SCH ×2 (08:35→21:25)
[2016-11-12 09:02] LABS: AUTOMATED NEUTROPHIL # 6.3 TH/MM3 (1.8-7.7); BASOPHIL % 0.6 % (0.0-2.0); EOSINOPHIL # 0.3 TH/MM3 (0-0.4); EOSINOPHIL % 3.6 % (0.0-4.0); HEMATOCRIT 29.7 % (35.0-46.0); LYMPH % 11.3 % (9.0-44.0); LYMPHOCYTE # 0.9 TH/MM3 (1.0-4.8); MEAN CELL VOLUME 67.9 FL (80.0-100.0); MEAN CORPUSCULAR HEMOGLOBIN 20.2 PG (27.0-34.0); MONO % 5.1 % (0.0-8.0); NEUT % 79.4 % (16.0-70.0); PLATELET COUNT 250 TH/MM3 (150-450); RED BLOOD COUNT 4.37 MIL/MM3 (4.00-5.30); RED CELL DISTRIBUTION WIDTH 28.9 % (11.6-17.2); WHITE BLOOD COUNT 7.9 TH/MM3 (4.0-11.0)
[2016-11-12 09:08] LABS: HEMO FLAGS AUTO DIFF
[2016-11-12 09:21] LABS: ANION GAP 8 MEQ/L (5-15); AST (GOT) 18 U/L (15-37); BLOOD UREA NITROGEN 9 MG/DL (7-18); CHLORIDE 98 MEQ/L (98-107); GLOMERULAR FILTRATION RATE 60 ML/MIN (>89); SODIUM (NA) 132 MEQ/L (136-145)
[2016-11-12 09:22] LABS: ALT (GPT) 17 U/L (10-53)
[2016-11-12 09:23] LABS: ALKALINE PHOSPHATASE 91 U/L (45-117); TOTAL BILIRUBIN ADULT 0.6 MG/DL (0.2-1.0)
[2016-11-12 10:10] LABS: POLYCHROMASIA 2.4 % (0.0-1.9)
[2016-11-12 10:11] LABS: OVALOCYTES 1+ (NORMAL); SCAN/DIFF AUTO DIFF CONFIRMED
--- NOTE | 2016-11-12 13:31 | HHI.GIFU ---
Subjective Remarks Continues to have LUQ abdominal pain. Nausea and one episode of emesis ( digested food) today. No hematemesis. (Tammy Mancera) Objective Vitals I&O Vital Signs Date Time Temp Pulse Resp B/P Pulse Ox O2 Delivery O2 Flow Rate FiO2 11/12/16 12:00 97.8 62 18 132/81 96 11/12/16 08:00 98.9 60 17 149/78 95 11/12/16 05:39 97.0 57 24 67/ 97 11/11/16 20:00 97.8 70 20 112/56 100 11/11/16 20:00 72 11/11/16 17:21 100 Nasal Cannula 3.00 11/11/16 16:00 97.4 65 18 154/70 100 I/O 11/11/16 11/11/16 11/11/16 11/12/16 11/12/16 11/12/16 07:00 15:00 23:00 07:00 15:00 23:00 Intake Total 1639 ml 975 ml Output Total 600 ml 450 ml Balance 1039 ml 525 ml Intake Oral 240 ml 222 ml IV Total 1027 ml 753 ml Packed Cells 372 ml Output Urine Total 600 ml 450 ml Stool Total 0 ml # Voids 2 2 # Bowel Movements 0 0 Laboratory Laboratory Tests Test 11/12/16 08:24 White Blood Count 7.9 Red Blood Count 4.37 Hemoglobin 8.8 Hematocrit 29.7 Mean Corpuscular Volume 67.9 Mean Corpuscular Hemoglobin 20.2 Mean Corpuscular Hemoglobin 29.7 Concent Red Cell Distribution Width 28.9 Platelet Count 250 Mean Platelet Volume 8.2 Neutrophils (%) (Auto) 79.4 Lymphocytes (%) (Auto) 11.3 Monocytes (%) (Auto) 5.1 Eosinophils (%) (Auto) 3.6 Basophils (%) (Auto) 0.6 Neutrophils # (Auto) 6.3 Lymphocytes # (Auto) 0.9 Monocytes # (Auto) 0.4 Eosinophils # (Auto) 0.3 Basophils # (Auto) 0.0 CBC Comment AUTO DIFF Differential Comment AUTO DIFF CONFIRMED Polychromasia 2.4 Ovalocytes 1+ Haptoglobin 217 Sodium Level 132 Potassium Level 4.0 Chloride Level 98 Carbon Dioxide Level 26.0 Anion Gap 8 Blood Urea Nitrogen 9 Creatinine 0.95 Estimat Glomerular Filtration 60 Rate Random Glucose 111 Calcium Level 8.0 Total Bilirubin 0.6 Aspartate Amino Transf 18 (AST/SGOT) Alanine Aminotransferase 17 (ALT/SGPT) Alkaline Phosphatase 91 Lactate Dehydrogenase 170 Total Protein 7.0 Albumin 2.8 Date/Time Procedure Status Source Growth 11/10/16 18:14 Aerobic Blood Culture - Preliminary Resulted Blood Peripheral NO GROWTH IN 2 DAYS 11/10/16 18:14 Anaerobic Blood Culture - Final Resulted Blood Peripheral QNS - SEE AEROBE REPORT Imaging Last Impressions CT Angiography 11/10/16 1305 Signed Impressions: Service Date/Time: Thursday, November 10, 2016 13:34 - CONCLUSION: Negative for central pulmonary emboli. Vamshi Callejas MD FACR Abdomen/Pelvis CT 11/10/16 1305 Signed Impressions: Service Date/Time: Thursday, November 10, 2016 13:37 - CONCLUSION: Degenerative changes in lumbar spine as described above Venous thrombosis as described above with vena cava filter Etiology of epigastric pain is not apparent. Vamshi Callejas MD FACR Chest X-Ray 11/10/16 1211 Signed Impressions: Service Date/Time: Thursday, November 10, 2016 12:47 - CONCLUSION: 1. Mild cardiomegaly. Minimal basilar atelectasis. Prince Jaimes MD Physical Exam HEENT: PERRLA. Normocephalic; atraumatic; no jaundice. CHEST: CTA CARDIAC: RRR. ABDOMEN: Soft, nondistended, LUQ tenderness; no hepatosplenomegaly; bowel sounds are present x 4 quadrants. EXTREMITIES: No clubbing, cyanosis, or edema. SKIN: Normal; no rash; no jaundice. REPLACER: No focal deficits; alert and oriented x 3 (Tammy Mancera [employer] MACHINE OPERATOR) Assessment and Plan Plan ASSESSMENT - Severe Anemia, microcytic hypochromic. Hgb 6.1/21.3, dropped to 5.6/20.1 (11/10 ). Denies blood in stool. Supposed to be on PPI/Coumadin- but has been off of these meds, as she cannot afford them. She was evaluated with EGD/Colonoscopy in May of 2016 which revealed distal reflux esophagitis, mild candidiasis in the upper part of the esophagus, 3 cm sliding hiatal hernia, mild to moderate gastritis in the antrum of the stomach, normal duodenum biopsy for celiac, 6 mm flat colon polyp in sigmoid colon, s/p cold snare polypectomy, mild diverticulosis in the descending and sigmoid colon, small internal hemorrhoids, otherwise normal colonoscopy, pathology small bowel biopsy normal, negative for celiac, gastric antrum mild chronic gastritis negative for h. pylori, ge junction squamocolumnar mucosa with mild chronic activity, negative for sanchez's, sigmoid polyp hyperplastic polyp. Prior to that she did have tubular adenoma in 2013. S/P 2 units PRBC, HH 8.8/29.7 (11/12) PPI. N/V x 1 today-digested food- no obvious bleeding. VSS. She does drink 1 pint of ETOH, but does no hx of varices. Will plan for EGD Sunday am. Iron 178, TIBC 470, % saturation 37.8, Ferritin 18 - N/V, patient attributes this to frequent postnasal drip and "sour stomach." No hematemesis. Hx GERD. Not taking PPI. EGD Sunday. - LUQ pain. Lipase WNL. Abdomen/Pelvis CT (11/10/16)-----> Degenerative changes in lumbar spine as described above Venous thrombosis as described above with vena cava filter Etiology of epigastric pain is not apparent. - Atypical chest pain, anterior left chest/LUQ pain. Not having chest pain at this time, but continues to have LUQ pain. Troponin I okay. - Non occlusive thrombosis - left common femoral vein, right iliac vein, lower inferior vena cava. s/p vena cava filter. Pt has hx of DVT and reports she is supposed to be on Coumadin but cannot afford this. - Hyponatremia. Per attending. PLAN - Plan for EGD Sunday - Obtain consents - NPO after MN - PPI - Monitor HH - Transfuse as needed - Supportive care - Further recommendations - Consider Capsule Endoscopy if EGD if negative Patient seen and examined by myself and Dr Egan and this note is written on his behalf (Tammy Mancera) Plan patient was seen and examined, agree with above note and plan, also if ED neg may need gastric emptying study. (Claude Egan MD) Tammy Mancera Nov 12, 2016 13:31 Claude Egan MD Nov 12, 2016 14:20
[2016-11-13] VITALS (7 sets, daily range): BP systolic 113–146; BP diastolic 56–77; PULSE 59–66; RESP 18–20; TEMP 97.3–98.2; O2SAT 97–99
[2016-11-13] MEDS: CHLORHEXIDINE GLUCONATE 2 % 1 PACK (2 CLOTHS)(taper/protocol) TOPICAL SCH (04:00)
[2016-11-13] MEDS ORDERED: PHARMACY ORDERED LAB ONE (04:45)
[2016-11-13] MEDS: ACETAMINOPHEN/HYDROcodone 325 MG/5 MG TAB PO PRN ×4 (05:01→16:28)
[2016-11-13] MEDS ORDERED: chlordiazePOXIDE 25 MG CAP PO PRN (08:00)
[2016-11-13 08:31] LABS: HEMATOCRIT 29.2 % (35.0-46.0); MEAN CELL VOLUME 68.3 FL (80.0-100.0); MEAN CORPUSCULAR HEMOGLOBIN 20.5 PG (27.0-34.0); PLATELET COUNT 213 TH/MM3 (150-450); RED BLOOD COUNT 4.27 MIL/MM3 (4.00-5.30); RED CELL DISTRIBUTION WIDTH 30.4 % (11.6-17.2); REVIEW FLAG FINAL; WHITE BLOOD COUNT 7.6 TH/MM3 (4.0-11.0)
[2016-11-13 08:36] LABS: ANION GAP 7 MEQ/L (5-15); AST (GOT) 14 U/L (15-37); BICARBONATE 23.6 MEQ/L (21.0-32.0); BLOOD UREA NITROGEN 11 MG/DL (7-18); CHLORIDE 100 MEQ/L (98-107); GLOMERULAR FILTRATION RATE 63 ML/MIN (>89); MAGNESIUM 1.6 MG/DL (1.5-2.5); POTASSIUM 4.1 MEQ/L (3.5-5.1); SODIUM (NA) 131 MEQ/L (136-145)
[2016-11-13 08:38] LABS: ALT (GPT) 17 U/L (10-53)
[2016-11-13 08:39] LABS: ALKALINE PHOSPHATASE 81 U/L (45-117); TOTAL BILIRUBIN ADULT 0.3 MG/DL (0.2-1.0)
[2016-11-13] MEDS: SODIUM CHLORIDE 0.9% FLUSH 10 ML FLUSH IV FLUSH SCH (09:00)
[2016-11-13] MEDS ORDERED: PROPOFOL 200 MG/20 ML AMP IV PUSH ONE (09:20)
--- NOTE | 2016-11-13 09:31 | HHI.GIFU ---
Subjective Remarks Immediate post procedure note: EGD with biopsy Indication: anemia Meds: MAC Findings: Esophagus: distal GERD Stomach: antral gastritis. Biopsy taken Duodenum: normal. Objective Vitals I&O Vital Signs Date Time Temp Pulse Resp B/P Pulse Ox O2 Delivery O2 Flow Rate FiO2 11/13/16 08:21 98.1 62 19 117/69 98 11/13/16 08:00 97.3 66 20 140/77 99 11/13/16 04:00 98.1 62 18 117/69 98 11/13/16 00:00 98.2 59 18 113/56 98 11/12/16 20:00 97.6 76 18 119/63 98 11/12/16 20:00 73 11/12/16 17:23 98 11/12/16 16:00 98.4 64 18 124/56 98 11/12/16 15:31 20 11/12/16 12:00 97.8 62 18 132/81 96 11/12/16 11:45 20 I/O 11/12/16 11/12/16 11/12/16 11/13/16 11/13/16 11/13/16 07:00 15:00 23:00 07:00 15:00 23:00 Intake Total 240 ml 150 ml Output Total 500 ml Balance 240 ml -350 ml Intake Oral 240 ml 150 ml Output Urine Total 500 ml # Voids 2 3 2 # Bowel Movements 0 1 Laboratory Laboratory Tests Test 11/13/16 07:56 White Blood Count 7.6 Red Blood Count 4.27 Hemoglobin 8.7 Hematocrit 29.2 Mean Corpuscular Volume 68.3 Mean Corpuscular Hemoglobin 20.5 Mean Corpuscular Hemoglobin 30.0 Concent Red Cell Distribution Width 30.4 Platelet Count 213 Mean Platelet Volume 8.3 Sodium Level 131 Potassium Level 4.1 Chloride Level 100 Carbon Dioxide Level 23.6 Anion Gap 7 Blood Urea Nitrogen 11 Creatinine 0.91 Estimat Glomerular Filtration 63 Rate Random Glucose 94 Calcium Level 8.1 Phosphorus Level 2.5 Magnesium Level 1.6 Total Bilirubin 0.3 Aspartate Amino Transf 14 (AST/SGOT) Alanine Aminotransferase 17 (ALT/SGPT) Alkaline Phosphatase 81 Total Protein 6.7 Albumin 2.8 Date/Time Procedure Status Source Growth 11/10/16 18:14 Aerobic Blood Culture - Preliminary Resulted Blood Peripheral NO GROWTH IN 2 DAYS 11/10/16 18:14 Anaerobic Blood Culture - Final Resulted Blood Peripheral QNS - SEE AEROBE REPORT Physical Exam HEENT: PERRLA. Normocephalic; atraumatic; no jaundice. CHEST: CTA CARDIAC: RRR. ABDOMEN: Soft, nondistended, LUQ tenderness; no hepatosplenomegaly; bowel sounds are present x 4 quadrants. EXTREMITIES: No clubbing, cyanosis, or edema. SKIN: Normal; no rash; no jaundice. DIRECTOR QUALITY SYSTEMS: No focal deficits; alert and oriented x 3 Assessment and Plan Plan Imp: Gastritis. GERD. No residual in stomach. Plan: Gastric emptying study. Pavan Kelly MD Nov 13, 2016 09:31 Pavan Kelly MD Nov 13, 2016 09:31
[2016-11-13] MEDS: MULTIVITAMIN TAB PO SCH (10:31)
[2016-11-13] MEDS: THIAMINE HCL 100 MG TAB PO SCH (10:31)
[2016-11-13] MEDS: SERTRALINE HCL 100 MG TAB PO SCH (10:31)
[2016-11-13] MEDS: METOPROLOL TARTRATE 25 MG TAB PO SCH (10:31)
[2016-11-13] MEDS: FOLIC ACID 1 MG TAB PO SCH (10:31)
[2016-11-13] MEDS: FERROUS SULFATE 325 MG (65 MG ELEMENTAL IRON) TAB PO SCH (10:32)
[2016-11-13] MEDS: levETIRAcetam 500 MG TAB PO SCH ×3 (10:32→16:36)
[2016-11-13] MEDS: PANTOPRAZOLE SODIUM 40 MG VIAL IV SCH (10:32)
[2016-11-13] MEDS ORDERED: HYDR-3516 PO (11:58)
[2016-11-13] MEDS ORDERED: PROT40TA PO (11:58)
[2016-11-13] MEDS ORDERED: GNP100TA3 PO (11:58)
[2016-11-13] MEDS ORDERED: LEVE500 PO (11:58)
[2016-11-13] MEDS ORDERED: METO25TA3 PO (11:58)
[2016-11-13] MEDS ORDERED: ZOLO100T PO (11:58)
[2016-11-13] MEDS ORDERED: FERR325T20 PO (11:58)
[2016-11-13] MEDS ORDERED: THERTAB15 PO (11:58)
--- NOTE | 2016-11-13 11:59 | HHI.DCPOC ---
Discharge Care Plan Diagnosis: (1) Alcoholic ketoacidosis (2) Severe anemia (3) Physical deconditioning Goals to Promote Your Health * To prevent worsening of your condition and complications * To maintain your health at the optimal level Directions to Meet Your Goals Take your medications as prescribed Follow your dietary instruction Follow activity as directed Keep your appointments as scheduled Take your immunizations and boosters as scheduled If your symptoms worsen call your PCP, if no PCP go to Urgent Care Center or Emergency Room Smoking is Dangerous to Your Health. Avoid second hand smoke Call the 24-hour hour crisis hotline for domestic abuse at Marcio Suero MD R1 Nov 13, 2016 11:59
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
== END 2016-11-13 17:58 | disposition home or self-care (01) | DRG 812 ==
LOC: NEPE 12:02 → NEDA 15:15 → HIMN 17:10 → N04A 11-11 13:20
PROVIDERS: ADMIT Family Medicine; ATTEND Family Medicine
PROC: 0DB78ZX Excision of Stomach, Pylorus, Via Natural or Artificial Opening Endoscopic, Diagnostic (ICD-10-PCS; 2016-11-09)
PROC: 30233N1 Transfusion of Nonautologous Red Blood Cells into Peripheral Vein, Percutaneous Approach (ICD-10-PCS; principal; 2016-11-10)
DX: D50.9 Iron deficiency anemia, unspecified (principal); E87.2 Acidosis; E87.1 Hypo-osmolality and hyponatremia; I10 Essential (primary) hypertension; J44.9 Chronic obstructive pulmonary disease, unspecified; R07.9 Chest pain, unspecified; F41.9 Anxiety disorder, unspecified; G89.29 Other chronic pain; M54.9 Dorsalgia, unspecified; K29.70 Gastritis, unspecified, without bleeding; F10.20 Alcohol dependence, uncomplicated; K21.9 Gastro-esophageal reflux disease without esophagitis; Z66 Do not resuscitate; Z86.718 Personal history of other venous thrombosis and embolism; Z87.891 Personal history of nicotine dependence; K59.00 Constipation, unspecified; Z86.010 Personal history of colon polyps; F32.9 Major depressive disorder, single episode, unspecified; K57.90 Diverticulosis of intestine, part unspecified, without perforation or abscess without bleeding; R07.89 Other chest pain; R26.2 Difficulty in walking, not elsewhere classified
CPT/HCPCS: 36430; 71010; 71275; 74177; 76937; 80048; 80053; 80307; 81001; 82010; 82550; 82728; 83010; 83540; 83550; 83605; 83615; 83690; 83735; 83880; 84100; 84484; 85014; 85018; 85025; 85027; 85610; 85730; 86850; 86900; 86901; 86920; 87040; 87641; 88305; 93005; 96361; 96374; 96375; C9113; J1170; J2060; J2270; J2405; J2543; J3370; J3480; J7030; J7040; P9016; Q9967

== ENCOUNTER 2017-02-07 15:28 | Emergency (ER) | payer SELFPAY ==
[~2017-02-07] VITALS: Ht 167.6 cm; Wt 80.0 kg
[~2017-02-07 15:28] MED LIST changes: -ALPR.5 PO; -CHOL4 PO; -FOLI1 PO; -HYDR-3533 PO; -METH10TA PO; -METO25 PO; -PROT40TA PO; -SERT100 PO; -THIA100T PO; +ZOLO100T PO
[2017-02-07 16:05] VITALS: BP 93/55; PULSE 101; RESP 16; TEMP 98.2; O2SAT 99
[2017-02-07] MEDS ORDERED: levETIRAcetam 500 MG TAB PO ONE (16:15)
[2017-02-07] MEDS ORDERED: LEVE500 PO (16:17)
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
[2017-02-07 16:38] VITALS: BP 112/62
== END 2017-02-07 16:46 | disposition home or self-care (01) ==
LOC: NEPD 15:28
DX: G40.909 Epilepsy, unspecified, not intractable, without status epilepticus (principal)
CPT/HCPCS: 99283

== ENCOUNTER 2017-04-08 07:33 | Inpatient (IN) | payer SELFPAY ==
[2017-04-08] VITALS (9 sets, daily range): BP systolic 162–188; BP diastolic 85–98; PULSE 82–90; RESP 14–22; TEMP 98.3–98.8; O2SAT 96–100
[~2017-04-08] VITALS: Ht 167.6 cm; Wt 86.3 kg
[2017-04-08] MEDS ORDERED: SODIUM CHLORIDE 0.9% FLUSH 5 ML FLUSH IV FLUSH PRN (07:45)
[2017-04-08] MEDS ORDERED: ALPR2TAB3 PO (07:49)
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
[2017-04-08] MEDS ORDERED: ASPI-516 CHEW (08:05)
--- NOTE | 2017-04-08 08:14 | RADRPT ---
EXAM DATE/TIME: 04/08/2017 08:03 [facility] COMPARISON: CT BRAIN W/O CONTRAST, February 28, 2014, 2:01. CT BRAIN W/O CONTRAST, November 28, 2016, 16:31. INDICATIONS : Fall, altered mental status. RADIATION DOSE: 33.32 CTDIvol (mGy) MEDICAL HISTORY : Seizures. Hypertension. PE SURGICAL HISTORY : IVC filter ENCOUNTER: Initial ACUITY: 1 day PAIN SCALE: 6/10 LOCATION: Bilateral cranial TECHNIQUE: Multiple contiguous axial images were obtained of the head. Using automated exposure control and adj ustment of the mA and/or kV according to patient size, radiation dose was kept as low as reasonably a chievable to obtain optimal diagnostic quality images. DICOM format image data is available electro nically for review and comparison. FINDINGS: CEREBRUM: The ventricles are normal for age. No evidence of midline shift, mass lesion, hemorrhage or acute in farction. No extra-axial fluid collections are seen. Atrophy again noted. POSTERIOR FOSSA: The cerebellum and brainstem are intact. The 4th ventricle is midline. The cerebellopontine angle i s unremarkable. EXTRACRANIAL: There is mucoperiosteal thickening of the paranasal sinuses. Small fluid levels are seen in the maxil chano air cells. SKULL: The calvaria is intact. No evidence of skull fracture. Scattered subcentimeter calvarial lucencies o r long-term stable. CONCLUSION: 1. Chronic findings as above. No bleed or other acute intracranial abnormality. 2. Paranasal sinus disease. Ephraim Durbin MD on April 08, 2017 at 8:10 Board Certified Radiologist. This report was verified electronically.
--- NOTE | 2017-04-08 08:31 | RADRPT ---
EXAM DATE/TIME: 04/08/2017 08:03 [facility] COMPARISON: CT CERVICAL SPINE W/O CONTRAST, March 18, 2014, 17:29. INDICATIONS : Fall, altered mental status. RADIATION DOSE: 21.86 CTDIvol (mGy) MEDICAL HISTORY : Seizures. Hypertension. PE SURGICAL HISTORY : IVC filter ENCOUNTER: Initial ACUITY: 1 day PAIN SCALE: 6/10 LOCATION: neck TECHNIQUE: Volumetric scanning of the cervical spine was performed. Multiplanar reconstructions in the sagittal, coronal and oblique axial planes were performed. Using automated exposure control and adjustment o f the mA and/or kV according to patient size, radiation dose was kept as low as reasonably achievable to obtain optimal diagnostic quality images. DICOM format image data is available electronically f or review and comparison. FINDINGS: Cervical spine alignment is normal. Vertebral bodies have normal height. No cortical break or trabecu lar disruption. Mild osteoarthritis seen anteriorly at C1/C2. Mild to moderate disc space narrowing with mild uncovertebral and facet osteoarthritis seen at C5/C6. There is mild disc space narrowing at C4/C5. CONCLUSION: Intact cervical spine. Ephraim Durbin MD on April 08, 2017 at 8:28 Board Certified Radiologist. This report was verified electronically.
[2017-04-08 09:02] LABS: BLOOD, URINE NEG (NEG); GLUCOSE,URINE NEG (NEG); KETONE, URINE NEG (NEG); NITRITE,URINE NEG (NEG); URINE COLOR LIGHT-YELLOW (YELLW/STRAW)
[2017-04-08 09:22] LABS: COMMENT (UR) CATH-CULT NOT IND; CULTURE IF INDICATED CATH CULTURE NOT IND; SQUAMOUS EPITHELIAL CELL URINE 0-5 /hpf (0-5)
[2017-04-08 10:31] LABS: AUTOMATED NEUTROPHIL # 5.3 TH/MM3 (1.8-7.7); BASOPHIL # 0.1 TH/MM3 (0-0.2); BASOPHIL % 0.9 % (0.0-2.0); EOSINOPHIL # 0.1 TH/MM3 (0-0.4); EOSINOPHIL % 1.9 % (0.0-4.0); HEMATOCRIT 29.4 % (35.0-46.0); HEMO FLAGS DIFF FINAL; LYMPH % 17.5 % (9.0-44.0); LYMPHOCYTE # 1.3 TH/MM3 (1.0-4.8); MEAN CELL VOLUME 82.2 FL (80.0-100.0); MEAN CORPUSCULAR HEMOGLOBIN 26.1 PG (27.0-34.0); MEAN CORPUSCULAR HGB CONC 31.7 % (32.0-36.0); MONO % 5.9 % (0.0-8.0); NEUT % 73.8 % (16.0-70.0); PLATELET COUNT 435 TH/MM3 (150-450); RED BLOOD COUNT 3.58 MIL/MM3 (4.00-5.30); RED CELL DISTRIBUTION WIDTH 15.4 % (11.6-17.2); WHITE BLOOD COUNT 7.2 TH/MM3 (4.0-11.0)
[2017-04-08 10:47] LABS: ANION GAP 7 MEQ/L (5-15); AST (GOT) 9 U/L (15-37); BLOOD UREA NITROGEN 18 MG/DL (7-18); CHLORIDE 101 MEQ/L (98-107); GLOMERULAR FILTRATION RATE 85 ML/MIN (>89); POTASSIUM 3.9 MEQ/L (3.5-5.1); SODIUM (NA) 134 MEQ/L (136-145)
[2017-04-08 10:48] LABS: ALT (GPT) 15 U/L (10-53)
[2017-04-08 10:51] LABS: ALKALINE PHOSPHATASE 65 U/L (45-117); TOTAL BILIRUBIN ADULT 0.2 MG/DL (0.2-1.0)
[2017-04-08 10:53] LABS: ALCOHOL LESS THAN 3 MG/DL (0-5)
--- NOTE | 2017-04-08 12:32 | HHI.HP ---
HPI Service [facility] Primary Care Physician No Primary Care Physician Admission Diagnosis altered mental status, prescription drug overdose Diagnoses: Chief Complaint: AMS s/p fall Travel History International Travel<30 Days: No Contact w/Intl Traveler <30 Da: No Traveled to Known Affected Are: No History of Present Illness Written by Carmen Álvarez, acting as scribe for Dr. Hidalgo on 04/08/17 at 12: 31. This is a 67-year-old female with a past medical history significant for seizure disorder, COPD and previous history of polysubstance abuse and narcotic dependence who presents to the ED status post fall at home. Patient reports that she has fallen multiple times in the past 2 nights. She reports two seizure episodes last night. She endorses loss of consciousness. She denies any associated bowel or bladder incontinence. She denies biting her tongue. She endorses dyspnea with a history of COPD and reports using the nebulizer at home. She denies any chest pain. She recently obtained a general practitioner but does not follow with neurology. She reports occasional alcohol consumption but denies having any alcohol the past 2-3 days. She has a prescription for Xanax 2 mg three times a day as needed. Review of Systems Except as stated in HPI: all other systems reviewed are Neg Past Family Social History Past Medical History Seizure disorder COPD History of alcohol abuse History of narcotic dependence History of previous esophageal stricture status post dilation History of IV drug user Depression Anxiety HTN DVT s/p IVC filter Past Surgical History Cataract surgery Reported Medications Keppra (Levetiracetam) 500 Mg Tab 500 Mg PO BID Aspirin 81 Mg Chew 81 Mg CHEW DAILY Alprazolam 2 Mg Tab 2 Mg PO Q8H PRN Allergies: Coded Allergies: Sulfa (Sulfonamide Antibiotics) (Unverified Allergy, Severe, Hives, ) naproxen (Unverified Allergy, Severe, unknown, 04/08/17) Active Ordered Medications Current Medications Medications (Trade) Dose Ordered Sig/Wayne Route Start Time Stop Time Status Last Admin (NS Flush) 2 ml UNSCH PRN IV FLUSH 04/08/17 07:45 Family History Coronary artery disease Social History Patient has a history of tobacco use in her 20s. She reports occasional EtOH use. Physical Exam Vital Signs Vital Signs Date Time Temp Pulse Resp B/P (MAP) Pulse Ox O2 Delivery O2 Flow Rate FiO2 04/08/17 09:00 87 16 177/92 (120) 99 Room Air 04/08/17 07:49 14 99 Room Air 04/08/17 07:38 98.8 84 16 169/85 (113) 96 Physical Exam GENERAL: This is a well-nourished, well-developed patient, in no apparent distress. Somnolent but answers questions appropriately. SKIN: Superficial abrasion noted on the bridge of the nose. Cool and dry. HEAD: Atraumatic. Normocephalic. No temporal or scalp tenderness. EYES: Pupils equal round and reactive. Extraocular motions intact. No scleral icterus. No injection or drainage. ENT: Nose without bleeding or purulent drainage. Throat without erythema, tonsillar hypertrophy or exudate. Uvula midline. Airway patent. NECK: Trachea midline. No lymphadenopathy. Supple, nontender, no meningeal signs. CARDIOVASCULAR: Regular rate and rhythm without murmurs, gallops, or rubs. RESPIRATORY: Fair air entry. Minimal wheezing noted. GASTROINTESTINAL: Abdomen obese, soft, non-tender, nondistended. No hepato- splenomegaly, or palpable masses. No guarding. MUSCULOSKELETAL: Extremities without clubbing, cyanosis, or edema. No joint tenderness, effusion, or edema noted. No calf tenderness. NEUROLOGICAL: Awake and alert. Able to move all extremities spontaneously. No focal neurologic findings appreciated. Normal speech. Laboratory Laboratory Tests Test 04/08/17 08:30 04/08/17 10:21 Urine Color LIGHT-YELLOW Urine Turbidity CLEAR Urine pH 7.0 Urine Specific Mclaughlin 1.015 Urine Protein NEG Urine Glucose (UA) NEG Urine Ketones NEG Urine Occult Blood NEG Urine Nitrite NEG Urine Bilirubin NEG Urine Urobilinogen LESS THAN 2.0 Urine Leukocyte Esterase NEG Urine Squamous Epithelial Cells 0-5 Microscopic Urinalysis Comment CATH-CULT NOT IND Urine Opiates Screen POS Urine Barbiturates Screen NEG Urine Amphetamines Screen NEG Urine Benzodiazepines Screen POS Urine Cocaine Screen NEG Urine Cannabinoids Screen NEG White Blood Count 7.2 Red Blood Count 3.58 Hemoglobin 9.3 Hematocrit 29.4 Mean Corpuscular Volume 82.2 Mean Corpuscular Hemoglobin 26.1 Mean Corpuscular Hemoglobin Concent 31.7 Red Cell Distribution Width 15.4 Platelet Count 435 Mean Platelet Volume 6.6 Neutrophils (%) (Auto) 73.8 Lymphocytes (%) (Auto) 17.5 Monocytes (%) (Auto) 5.9 Eosinophils (%) (Auto) 1.9 Basophils (%) (Auto) 0.9 Neutrophils # (Auto) 5.3 Lymphocytes # (Auto) 1.3 Monocytes # (Auto) 0.4 Eosinophils # (Auto) 0.1 Basophils # (Auto) 0.1 CBC Comment DIFF FINAL Differential Comment Blood Urea Nitrogen 18 Creatinine 0.70 Random Glucose 86 Total Protein 8.1 Albumin 3.5 Calcium Level 8.9 Alkaline Phosphatase 65 Aspartate Amino Transf (AST/SGOT) 9 Alanine Aminotransferase (ALT/SGPT) 15 Total Bilirubin 0.2 Sodium Level 134 Potassium Level 3.9 Chloride Level 101 Carbon Dioxide Level 26.0 Anion Gap 7 Estimat Glomerular Filtration Rate 85 Ethyl Alcohol Level LESS THAN 3 Result Diagram: 04/08/17 1021 04/08/17 1021 Imaging Last Impressions Head CT 04/08/17 0743 Signed Impressions: Service Date/Time: Saturday, April 08, 2017 08:03 - CONCLUSION: 1. Chronic findings as above. No bleed or other acute intracranial abnormality. 2. Paranasal sinus disease. Ephraim Durbin MD Cervical Spine CT 04/08/17 0000 Signed Impressions: Service Date/Time: Saturday, April 08, 2017 08:03 - CONCLUSION: Intact cervical spine. Ephraim Durbin MD Capaloni VTE Risk Assessment Caprini VTE Risk Assessment: Mod/High Risk (score >= 2) Caprini Risk Assessment Model Point Value = 1 Point Value = 2 Point Value = 3 Point Value = 5 Age 41-60 Minor surgery BMI > 25 kg/m2 Swollen legs Varicose veins or History of unexplained or recurrent spontaneous Oral contraceptives or hormone replacement Sepsis (< 1 month) Serious lung disease, including pneumonia (< 1 month) Abnormal pulmonary function Acute myocardial infarction Congestive heart failure (< 1 month) History of inflammatory bowel disease Medical patient at bed rest Age 61-74 Arthroscopic surgery Major open surgery (> 45 min) Laparoscopic surgery (> 45 min) Malignancy Confined to bed (> 72 hours) Immobilizing plaster cast Central venous access Age >= 75 History of VTE Family history of VTE Factor V Leiden Prothrombin [id number] Lupus anticoagulant Anticardiolipin antibodies Elevated serum homocysteine Heparin-induced thrombocytopenia Other congenital or acquired thrombophilia Stroke (< 1 month) Elective arthroplasty Hip, pelvis, or leg fracture Acute spinal cord injury (< 1 month) Prophylaxis Regimen Total Risk Factor Score Risk Level Prophylaxis Regimen 0-1 Low Early ambulation 2 Moderate Order ONE of the following: *Sequential Compression Device (SCD) *Heparin 5000 units SQ BID 3-4 Higher Order ONE of the following medications: *Heparin 5000 units SQ TID *Enoxaparin/Lovenox 40 mg SQ daily (WT < 150 kg, CrCl > 30 mL/min) *Enoxaparin/Lovenox 30 mg SQ daily (WT < 150 kg, CrCl > 10-29 mL/min) *Enoxaparin/Lovenox 30 mg SQ BID (WT < 150 kg, CrCl > 30 mL/min) AND/OR *Sequential Compression Device (SCD) 5 or more Highest Order ONE of the following medications: *Heparin 5000 units SQ TID (Preferred with Epidurals) *Enoxaparin/Lovenox 40 mg SQ daily (WT < 150 kg, CrCl > 30 mL/min) *Enoxaparin/Lovenox 30 mg SQ daily (WT < 150 kg, CrCl > 10-29 mL/min) *Enoxaparin/Lovenox 30 mg SQ BID (WT < 150 kg, CrCl > 30 mL/min) AND *Sequential Compression Device (SCD) Assessment and Plan Assessment and Plan 67-year-old female with a past medical history significant for seizure disorder , COPD and previous history of polysubstance abuse and narcotic dependence who presents to the ED status post fall at home. AMS s/p fall at home - uncertain etiology; syncope vs seizure activity vs oversedation secondary to benzo and narcotic use/abuse - UDS positive for benzodiazepines and opiates - admit to obs - obtain Keppra level - hold narcotic medications - Neuro checks q4h - 2-D echocardiogram - Holter monitor - Continuous cardiac monitoring - EEG study - Carotid ultrasound - PT eval/tx - Seizure precautions COPD, not in acute exacerbation - Duonebs - monitor respiratory status - Supplemental oxygen as needed to maintain O2 sats above 92% Uncontrolled hypertension -Start low dose amlodipine 5 mg -Vasotec as needed, and monitor blood pressure Anemia - chronic - suspect component of iron deficiency anemia - Obtain iron studies Anxiety - Concern for benzodiazepine abuse - titrate down on benzodiazepine use from Xanax 2 mg TID prn to Xanax 0.5 mg q6h prn History of alcohol abuse - CIWA protocol - monitor for s/sx of EtOH withdrawal - Thiamine/folic acid/MVI daily - seizure precautions Hx of DVT - s/p IVC filter placement DVT prophylaxis - chemoprophylaxis contraindicated due to history of anemia - bilateral SCD/BETO hose Discussed Condition With nursing staff, patient, ED physician This note was transcribed by stephanie Álvarez I, Dr. Mellisa Hidalgo personally performed the history, physical exam, and medical decision making; and confirmed the accuracy of the information in the transcribed note. Authenticated by Dr. Mellisa Hidalgo on 04/08/17 at 12:45. Carmen Álvarez Apr 08, 2017 12:32 Mellisa Hidalgo MD Apr 08, 2017 12:36
[2017-04-08] MEDS ORDERED: RESP: ALBUTEROL 2.5 MG/IPRATROPIUM 0.5 MG NEB (PRN) NEB (12:45)
--- NOTE | 2017-04-08 12:52 | EKG ---
Date Performed: 04/08/2017 Time Performed: 07:56:04 PTAGE: 61 years EKG: Sinus rhythm BORDERLINE LEFT AXIS DEVIATION Compared to prior tracing no significant change BORDERLINE ECG PREVIOUS TRACING : 11/11/2016 00.33 DOCTOR: Vinh Loomis Interpretating Date/Time 04/08/2017 12:51:47
--- NOTE | 2017-04-08 15:09 | RADRPT ---
EXAM DATE/TIME: 04/08/2017 14:20 [facility] COMPARISON: No previous studies available for comparison. INDICATIONS : Syncope. MEDICAL HISTORY : Hypercholesterolemia. Hypertension. Neck pain. Seizures. Anticoagulant therapy. Pulmonary embolism. Ectopic . Anxiety. Depression. MRSA. C-DIFF. SURGICAL HISTORY : IVC filter. Left arm and ankle surgery. Left knee surgery. ENCOUNTER: Initial ACUITY: 1 day PAIN SCORE: 0/10 LOCATION: Bilateral neck PEAK SYSTOLIC VELOCITIES (cm/sec): ICA/CCA RATIO: Right: 2.0 Left: 2.6 ICA: Right: 81.2 Left: 139.3 CCA: Right: 39.8 Left: 53.4 ECA: Right: 64.4 Left: 55.5 VERTEBRAL: Right: 43.5 antegrade Left: 75.3 antegrade Elevated flow velocities and ICA/CCA ratios have been found to correlate with increased degrees of vessel stenosis, calculated as percentage of diameter relative to a normal segment of distal ICA/CCA FINDINGS: Antegrade flow of bilateral vertebral arteries. Mild elevated velocity and ratio on the left correspo nding to an estimated 50-69% stenosis. Grayscale images demonstrate mild soft plaque deposition of th e external and internal carotid arteries. On the right grayscale images demonstrates no significant p laque deposition. Velocity is normal. CONCLUSION: No hemodynamically significant stenosis. Geraldo Brown MD on April 08, 2017 at 15:05 Board Certified Radiologist. This report was verified electronically.
[2017-04-08] MEDS ORDERED: LORazepam 1 MG TAB PO PRN (15:15)
[2017-04-08] MEDS ORDERED: FLUMAZENIL 0.5 MG/5 ML VIAL IV PUSH PRN (15:15)
[2017-04-08] MEDS ORDERED: LORazepam 2 MG TAB PO PRN (15:15)
[2017-04-08] MEDS ORDERED: THIAMINE HCL 100 MG TAB PO ONE (15:15)
[2017-04-08] MEDS ORDERED: LORazepam 2 MG/ML VIAL IV PUSH PRN ×4 (15:15)
[2017-04-08] MEDS ORDERED: MULTIVITAMIN TAB PO ONE (15:15)
[2017-04-08] MEDS ORDERED: FOLIC ACID 1 MG TAB PO ONE (15:15)
[2017-04-08] MEDS: FOLIC ACID 1 MG TAB PO SCH (17:36)
[2017-04-08] MEDS: THIAMINE HCL 100 MG TAB PO SCH (17:36)
[2017-04-08] MEDS: MULTIVITAMIN TAB PO SCH (17:36)
[2017-04-08] MEDS: amLODIPine BESYLATE 5 MG TAB PO SCH (17:37)
[2017-04-08] MEDS ORDERED: ENALAPRILAT 1.25 MG/ML VIAL IV PUSH PRN (17:45)
[2017-04-08] MEDS: SODIUM CHLOR 0.9% 1000 ML INJ 1,000 ML IV SCH (18:55)
[2017-04-08 19:09] LABS: PROTHROMBIN TIME - PATIENT 10.7 SEC (9.8-11.6)
[2017-04-08] MEDS: RESP: ALBUTEROL 2.5 MG/IPRATROPIUM 0.5 MG NEB (SCH) NEB (19:25)
[2017-04-09] VITALS (7 sets, daily range): BP systolic 134–185; BP diastolic 74–102; PULSE 80–88; RESP 18–20; TEMP 97.3–98.7; O2SAT 94–100
--- NOTE | 2017-04-09 05:06 | MG ---
cc: KESHA VERONICA M.D. Lab No: [id number] Date: 04/08/2017 Age: Sex: F Race: NOTE Patient noted be snoring. CT negative. Small sharps bilaterally. Seizure disorder. Polysubstance. FINDINGS The recording shows symmetric sleep spindles. Some alpha waves are noted which a diffuse and synchronous and symmetric. Basically the whole recording is during sleep. No epileptiform or seizure activity was noted. There were no hemisphere asymmetries. No sharp waves were noted. IMPRESSION Normal Stage II sleep EEG. No evidence for a focal or diffuse abnormality. MD BRIDGET Khan/SSB /9:47 PM /5:05 AM
[2017-04-09 06:26] LABS: TRANSFERRIN IRON PROFILE 337 MG/DL (200-360)
[2017-04-09 06:51] LABS: FERRITIN 8 NG/ML (8-252)
[2017-04-09] MEDS: SODIUM CHLOR 0.9% 1000 ML INJ 1,000 ML IV SCH ×3 (06:55→22:29)
[2017-04-09] MEDS: RESP: ALBUTEROL 2.5 MG/IPRATROPIUM 0.5 MG NEB (SCH) NEB (07:46)
[2017-04-09] MEDS ORDERED: PILL SPLITTER OTHER PRN (08:15)
[2017-04-09] MEDS: MULTIVITAMIN TAB PO SCH (09:06)
[2017-04-09] MEDS: amLODIPine BESYLATE 5 MG TAB PO SCH (09:07)
[2017-04-09] MEDS: FOLIC ACID 1 MG TAB PO SCH (09:07)
[2017-04-09] MEDS: THIAMINE HCL 100 MG TAB PO SCH (09:07)
[2017-04-09] MEDS: FERROUS SULFATE 325 MG (65 MG ELEMENTAL IRON) TAB PO SCH ×2 (09:16→22:28)
[2017-04-09] MEDS: ASCORBIC ACID 500 MG TAB PO SCH ×2 (09:16→22:28)
[2017-04-09 12:19] LABS: AUTOMATED NEUTROPHIL # 4.9 TH/MM3 (1.8-7.7); BASOPHIL # 0.1 TH/MM3 (0-0.2); BASOPHIL % 1.1 % (0.0-2.0); EOSINOPHIL # 0.1 TH/MM3 (0-0.4); EOSINOPHIL % 1.4 % (0.0-4.0); HEMATOCRIT 28.2 % (35.0-46.0); HEMO FLAGS DIFF FINAL; LYMPH % 17.2 % (9.0-44.0); LYMPHOCYTE # 1.1 TH/MM3 (1.0-4.8); MEAN CELL VOLUME 80.5 FL (80.0-100.0); MEAN CORPUSCULAR HEMOGLOBIN 26.6 PG (27.0-34.0); NEUT % 75.3 % (16.0-70.0); PLATELET COUNT 444 TH/MM3 (150-450); RED CELL DISTRIBUTION WIDTH 15.2 % (11.6-17.2); WHITE BLOOD COUNT 6.5 TH/MM3 (4.0-11.0)
[2017-04-09 12:50] LABS: BICARBONATE 23.8 MEQ/L (21.0-32.0); POTASSIUM 3.7 MEQ/L (3.5-5.1)
--- NOTE | 2017-04-09 14:44 | HHI.PR ---
Subjective Remarks patient on the commode moving bowel She denied any dizziness or lightheaded(or chest pain or short of breath Objective Vitals Vital Signs Date Time Temp Pulse Resp B/P (MAP) Pulse Ox O2 Delivery O2 Flow Rate FiO2 04/09/17 08:36 97.5 88 19 185/98 (127) 97 04/09/17 07:48 99 04/09/17 07:01 86 04/09/17 00:59 98.7 88 18 182/102 (128) 99 04/08/17 19:49 98.7 90 18 188/88 (121) 100 04/08/17 15:29 98.3 88 22 187/98 (127) 99 I/O 04/08/17 04/08/17 04/08/17 04/09/17 04/09/17 04/09/17 07:00 15:00 23:00 07:00 15:00 23:00 Intake Total 840 ml Balance 840 ml Intake Oral 840 ml # Voids 1 # Bowel Movements 1 Result Diagram: 04/09/17 1055 04/09/17 1055 Objective Remarks GENERAL: This is a well-nourished, well-developed patient, in no apparent distress. Somnolent but answers questions appropriately. SKIN: Superficial abrasion noted on the bridge of the nose. Cool and dry. HEAD: Atraumatic. Normocephalic. No temporal or scalp tenderness. EYES: Pupils equal round and reactive. Extraocular motions intact. No scleral icterus. No injection or drainage. ENT: Nose without bleeding or purulent drainage. Throat without erythema, tonsillar hypertrophy or exudate. Uvula midline. Airway patent. NECK: Trachea midline. No lymphadenopathy. Supple, nontender, no meningeal signs. CARDIOVASCULAR: Regular rate and rhythm without murmurs, gallops, or rubs. RESPIRATORY: Fair air entry. Minimal wheezing noted. GASTROINTESTINAL: Abdomen obese, soft, non-tender, nondistended. No hepato- splenomegaly, or palpable masses. No guarding. MUSCULOSKELETAL: Extremities without clubbing, cyanosis, or edema. No joint tenderness, effusion, or edema noted. No calf tenderness. NEUROLOGICAL: Awake and alert. Able to move all extremities spontaneously. No focal neurologic findings appreciated. Normal speech. A/P Assessment and Plan 04/09: Blood pressure still high increase amlodipine to 10 mg, carotid ultrasound as well as EEG is negative, 2-D echo is pending, I will consult hook and eye attacher for anemia and iv iron administration 67-year-old female with a past medical history significant for seizure disorder , COPD and previous history of polysubstance abuse and narcotic dependence who presents to the ED status post fall at home. AMS s/p fall at home - uncertain etiology; syncope vs seizure activity vs oversedation secondary to benzo and narcotic use/abuse - UDS positive for benzodiazepines and opiates - admit to obs - obtain Keppra level - hold narcotic medications - Neuro checks q4h - 2-D echocardiogram - Holter monitor - Continuous cardiac monitoring - EEG study - Carotid ultrasound - PT eval/tx - Seizure precautions COPD, not in acute exacerbation - Marianabs - monitor respiratory status - Supplemental oxygen as needed to maintain O2 sats above 92% Uncontrolled hypertension -Start low dose amlodipine 5 mg -Vasotec as needed, and monitor blood pressure Anemia - chronic - suspect component of iron deficiency anemia - Obtain iron studies Anxiety - Concern for benzodiazepine abuse - titrate down on benzodiazepine use from Xanax 2 mg TID prn to Xanax 0.5 mg q6h prn History of alcohol abuse - CIWA protocol - monitor for s/sx of EtOH withdrawal - Thiamine/folic acid/MVI daily - seizure precautions Hx of DVT - s/p IVC filter placement DVT prophylaxis - chemoprophylaxis contraindicated due to history of anemia - bilateral SCD/BETO Mellisa Menjivar MD Apr 09, 2017 14:44
[2017-04-09] MEDS ORDERED: IRON SUCROSE 100 MG/5 ML VIAL IV PUSH ONE (19:45)
[2017-04-09] MEDS ORDERED: IRON SUCROSE IV ONE (21:00)
[2017-04-09] MEDS ORDERED: IRON SUCROSE INJ 300 MG in SODIUM CHLORIDE 0.9% INJ 100 ML IV ONE (21:00)
[2017-04-09] MEDS ORDERED: SODIUM CHLOR 0.9% IV ONE (21:00)
[2017-04-09] MEDS: ALPRAZolam 0.5 MG TAB PO PRN (22:49)
[2017-04-10] VITALS (8 sets, daily range): BP systolic 120–151; BP diastolic 62–91; PULSE 74–98; RESP 18–20; TEMP 97.5–99; O2SAT 92–100
--- NOTE | 2017-04-10 06:32 | MB ---
cc: JASON RODRÍGUEZ M.D. DATE OF CONSULTATION 04/09/2017 REASON FOR CONSULTATION Consult requested by [facility] hospitalist for evaluation of iron deficiency anemia. HISTORY OF PRESENT ILLNESS Domonique is a 61-year-old female. She has a history of epilepsy, COPD, polysubstance drug abuse. She states that she also has a history of chronic anemia and she usually gets blood transfusion once or twice a year. She states that she whenever she goes to [facility] they find anemia and they give her blood transfusion. She has not been evaluated by any moving consultant, according to her. She recently changed her primary physician, but has not had a chance to go for an appointment as yet. The patient recently was found to have repeated falls and she had a seizure the night prior to coming to the hospital. She was brought into the hospital for change in mental status, suspected drug overdose. Her neurologist have been consulted. Workup is in progress to evaluate for the change in mental status. CBC yesterday showed white count of 7.2, hemoglobin 9.3 hematocrit 29.4, MCV is 82 and platelet count is 435. Iron studies were ordered and the serum ferritin is very low at 8, iron saturation is low at 3.8, TIBC is 472 and serum iron is 18. The B12 is normal at 315 and folate is more than 20. Because of the iron deficiency anemia I have been asked to see her for further evaluation. The patient denies any vaginal bleeding. She is postmenopausal. She denies any blood in the stool. She had not had a GI workup for several years, according to her. She stated usually she gets admitted to [facility]. Those records are not available at the present time. The patient denies any bleeding. She has a history of polysubstance drug abuse. The rest of the review of systems is negative. PAST MEDICAL HISTORY 1. Epilepsy. 2. COPD. 3. Polysubstance drug abuse. 4. Depression, anxiety. 5. Hypertension. 6. History of DVT status post IVC filter. PAST SURGICAL HISTORY 1. Cataract surgery. 2. IVC filter placement. ALLERGIES SULFA. NAPROSYN. MEDICATIONS 1. Keppra. 2. Aspirin. 3. Xanax. FAMILY HISTORY Noncontributory. SOCIAL HISTORY The patient has a history of cigarette smoking since she was a teen. She also occasionally drinks alcohol and abuses recreational drugs. PHYSICAL EXAMINATION GENERAL: This is a well-developed elderly white female in no apparent distress. VITAL SIGNS: Temperature 98.1, heart rate is 84, blood pressure 145/91. O2 saturation 94% on room air. HEENT: PERRLA, EOMI, anicteric. No oral lesions are noted. NECK: No lymphadenopathy noted. LUNGS: Clear. No wheezing, rhonchi or rales. HEART: Regular rate and rhythm. ABDOMEN: Soft, nontender. No hepatosplenomegaly. EXTREMITIES: No pedal edema. NEUROLOGY: Awake, alert, oriented x 3. SKIN: No significant lesions noted. ASSESSMENT 1. Iron-deficiency anemia. The source of iron loss is unknown but I suspect GI bleeding. 2. Change in mental status most likely due to polysubstance drug abuse. 3. COPD. 4. Epilepsy. PLAN I have reviewed her available records and I had an extensive discussion with the patient regarding the anemia. Her white count and platelets are normal. Hemoglobin is low at 9.3 and MCV is low-normal at 80.5. MCH is low. She has normocytic hypochromic anemia which is due to the iron deficiency. Her iron studies shows severe iron deficiency. Her serum ferritin is low at 8, iron saturation is low at 3.8, serum iron is low at 18 and TIBC is high at 472. B12 is normal at 315, folate is more than 20. Clearly she has iron-deficiency anemia. We need to find the source of the iron deficiency. I suspect that she may have GI bleeding as a cause of iron deficiency. I have recommended to get a GI consult for further evaluation of the source of the iron loss. I will give her Venofer 300 mg IV tonight. We will repeat the blood tests in the morning. The patient does not require any blood transfusion as her hemoglobin is 9.3 and she is not symptomatic from that. We discussed that the iron deficiency is a symptom/sign and we need to find the cause of it. I gave her the analogy that somebody who has a fever and given Tylenol will bring the fever down but to treat the underlying cause of fever we need to find the type of the infection. Similarly here she has iron-deficiency anemia which is a symptom/sign and we need to find the cause of the iron deficiency. She is postmenopausal. She does not have any vaginal bleeding. She denies any bleeding from the nose or from the gums, so I suspect that she has intermittent GI bleeding. She agreed to see a auto motor mechanic for further evaluation. It is possible that she could have lack of iron absorption. If the GI workup comes back negative, then most likely the cause of iron deficiency is lack of iron absorption and then she would need further iron infusion as an outpatient. Further recommendations based on her hospital stay. Thank you for asking my opinion. Shailesh Rodríguez MD /LUIS DANIEL /11:26 PM /6:22 AM DOMINIQUE
[2017-04-10] MEDS: RESP: ALBUTEROL 2.5 MG/IPRATROPIUM 0.5 MG NEB (SCH) NEB ×2 (08:07→20:13)
[2017-04-10] MEDS: amLODIPine BESYLATE 5 MG TAB PO SCH (10:25)
[2017-04-10] MEDS: THIAMINE HCL 100 MG TAB PO SCH (10:26)
[2017-04-10] MEDS: FERROUS SULFATE 325 MG (65 MG ELEMENTAL IRON) TAB PO SCH ×2 (10:26→23:09)
[2017-04-10] MEDS: FOLIC ACID 1 MG TAB PO SCH (10:26)
[2017-04-10] MEDS: MULTIVITAMIN TAB PO SCH (10:26)
[2017-04-10] MEDS: ASCORBIC ACID 500 MG TAB PO SCH ×2 (10:27→23:09)
--- NOTE | 2017-04-10 10:40 | HHI.PR ---
Subjective Remarks Follow up on patient with anemia, AMS, polysubstance abuse. Patient seen and examined. Patient complaining of bilateral temporal headache. She has not had anything for pain. Denies any associated nausea, vomiting, dizziness or vision changes. She denies any chest pain or dyspnea. She is tolerating clear liquid diet, requesting regular diet. She reports episode of diarrhea yesterday, none this morning. She denies any blood in the stool. She denies any hematuria. She denies any fever or chills. Objective Vitals Vital Signs Date Time Temp Pulse Resp B/P (MAP) Pulse Ox O2 Delivery O2 Flow Rate FiO2 04/10/17 08:50 97.9 78 18 150/67 (94) 97 04/10/17 04:55 97.5 74 18 151/91 (111) 100 04/10/17 00:27 97.8 75 18 120/68 (85) 96 04/09/17 20:42 98.4 85 18 166/80 (108) 100 04/09/17 16:46 97.3 81 18 134/79 (97) 99 04/09/17 15:46 98.1 84 20 145/91 (109) 94 I/O 04/09/17 04/09/17 04/09/17 04/10/17 04/10/17 04/10/17 07:00 15:00 23:00 07:00 15:00 23:00 Intake Total 840 ml Balance 840 ml Intake Oral 840 ml # Voids 4 1 1 # Bowel Movements 2 Result Diagram: 04/09/17 1055 04/09/17 1055 Imaging Last Impressions Head CT 04/08/17 0743 Signed Impressions: Service Date/Time: Saturday, April 08, 2017 08:03 - CONCLUSION: 1. Chronic findings as above. No bleed or other acute intracranial abnormality. 2. Paranasal sinus disease. Ephraim Durbin MD Cervical Spine CT 04/08/17 0000 Signed Impressions: Service Date/Time: Saturday, April 08, 2017 08:03 - CONCLUSION: Intact cervical spine. Ephraim Durbin MD Carotid Artery Ultrasound 04/08/17 0000 Signed Impressions: Service Date/Time: Saturday, April 08, 2017 14:20 - CONCLUSION: No hemodynamically significant stenosis. Geraldo Brown MD Objective Remarks GENERAL: Well-nourished, well-developed patient in NAD. Awake and alert. Sitting up in hospital bed eating breakfast. SKIN: Warm and dry. HEAD: Normocephalic. Small superficial well-healing abrasion over bridge of nose. EYES: EOMI. No scleral icterus. No injection or drainage. ENT: No nasal bleeding or discharge. Mucous membranes pink and moist. NECK: Trachea midline. CARDIOVASCULAR: Regular rate and rhythm. S1, S2 noted. No murmur appreciated. RESPIRATORY: Nonlabored. Clear to auscultation. Breath sounds equal bilaterally. GASTROINTESTINAL: Abdomen soft, non-tender, nondistended. Normoactive bowel sounds x4. MUSCULOSKELETAL: No obvious deformities. Extremities without clubbing or cyanosis. Trace BLE edema. NEUROLOGICAL: Awake and alert. Able to move all extremities spontaneously. Motor and sensory function grossly intact. Nonfocal. Normal speech. PSYCHIATRIC: Appropriate mood and affect; insight and judgment normal. Medications and IVs Current Medications Medications (Trade) Dose Ordered Sig/Wayne Route Start Time Stop Time Status Last Admin (NS Flush) 2 ml UNSCH PRN IV FLUSH 04/08/17 07:45 (Xanax) 0.5 mg Q6H PRN PO 04/08/17 12:45 04/09/17 22:49 (Duoneb Neb) 1 ampule BID NEB NEB 04/08/17 20:00 04/10/17 08:07 (Duoneb Neb) 1 ampule Q2HR NEB PRN NEB 04/08/17 12:45 (Romazicon Inj) 0.2 mg Q1M PRN IV PUSH 04/08/17 15:15 (Ativan) 1 mg Q4H PRN PO 04/08/17 15:15 (Ativan Inj) 1 mg Q4H PRN IV PUSH 04/08/17 15:15 (Ativan) 2 mg Q2H PRN PO 04/08/17 15:15 (Ativan Inj) 2 mg Q2H PRN IV PUSH 04/08/17 15:15 (Ativan Inj) 2 mg Q1H PRN IV PUSH 04/08/17 15:15 (Ativan Inj) 2 mg Q15M PRN IV PUSH 04/08/17 15:15 (Vitamin B1) 100 mg DAILY PO 04/08/17 16:00 04/09/17 09:07 (Folate) 1 mg DAILY PO 04/08/17 16:00 04/09/17 09:07 (Theragran) 1 tab DAILY PO 04/08/17 16:00 04/09/17 09:06 (Vasotec Inj) 1.25 mg Q6H PRN IV PUSH 04/08/17 17:45 (Norvasc) 5 mg DAILY PO 04/08/17 17:33 04/09/17 09:07 Sodium Chloride 1,000 ml @ 84 mls/hr [id number] IV 04/08/17 19:00 04/09/17 22:29 (Ferrous Sulfate) 325 mg BID PO 04/09/17 09:00 04/09/17 22:28 (Vitamin C) 250 mg BID PO 04/09/17 09:00 04/09/17 22:28 (Pill Splitter) 1 ea UNSCH PRN OTHER 04/09/17 08:15 A/P Assessment and Plan 67-year-old female with a past medical history significant for seizure disorder , COPD and previous history of polysubstance abuse and narcotic dependence who presents to the ED status post fall at home. AMS s/p fall at home - uncertain etiology; syncope vs seizure activity vs oversedation secondary to benzo and narcotic use/abuse - UDS positive for benzodiazepines and opiates - Keppra level pending - hold narcotic medications - Neuro checks q4h - 2-D echocardiogram completed/results pending - Holter monitor - Continuous cardiac monitoring - EEG study normal - Carotid ultrasound shows no significant stenosis - PT eval/tx, continue. Home with [facility] PT anticipated. 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 COPD, not in acute exacerbation - Duonebs - monitor respiratory status - Supplemental oxygen as needed to maintain O2 sats above 92% Hypertension, uncontrolled - Amlodipine increased to 10 mg daily - d/c IVF - Vasotec as needed - Continue to monitor blood pressure and adjust treatment as indicated Anemia, normocytic, hypochromic - chronic - suspect component of iron deficiency anemia - iron studies showing iron deficiency anemia - iron 18, TIBC 472, iron sat 3.8, ferritin 8 - continue on iron supplementation - Dr. Rodríguez following, appreciate assistance. Given IV Venofer. Recommends GI consultation for possible GI bleed as source of RAD. May require additional iron infusions as outpatient. - Hemoglobin stable, no indication for transfusion at this time - Continue to monitor CBC ?GIB - Suspicious due to iron deficiency anemia - Consult GI, appreciate recommendations Anxiety - Concern for benzodiazepine abuse - titrate down on benzodiazepine use from Xanax 2 mg TID prn to Xanax 0.5 mg q6h prn History of alcohol abuse - [facility] protocol - monitor for s/sx of EtOH withdrawal - Thiamine/folic acid/MVI daily - seizure precautions Headache - Tylenol prn Diarrhea - Single episode yesterday, no recurrence today - Instructed patient to please let nurse know if diarrhea resumes and if so will order C. difficile toxin. Hx of DVT - s/p IVC filter placement DVT prophylaxis - chemoprophylaxis contraindicated due to history of anemia - bilateral SCD/BETO hose Discussed with patient, nursing staff and Dr. Nath Discharge Planning Pending GI assessment/recommendations and specialty service clearance Attending Statement seen and examined states history of SZ disorder on keppra 750 mg po bid and Xanax 2 mg tid for a year now complains of difficulty swallowing mostly with solids denies any melena or heamtochezia post menopausal - - no vaginal bleedings now denies any pain PE- awake and alert, oriented x 3 anicteric lungs- no rales regular rhythm abdomen soft, nontender extremities no edema neuro exam- non focal A/P Iron deficiency- give IV Venofer, Hematology ff GI compliants of dysphagia- reviewed records was here in the past and had EGD/ colonoscopy- not impressive seen by GI- for EGD and possible dilatation in am on PPI History of Anxiety disorder. on Xanax 2 mg tid per patient - reviewed meds from previous visits- she was only on 0.5 mg po tid prn will start Xanax 0.125 mg po tid history fo seizure disorder- continue on Keppra 750 mg po bid Carmen Fernandes Apr 10, 2017 10:40 True Nath MD Apr 10, 2017 16:17
[2017-04-10 10:55] LABS: AUTOMATED NEUTROPHIL # 5.4 TH/MM3 (1.8-7.7); BASOPHIL # 0.1 TH/MM3 (0-0.2); BASOPHIL % 1.1 % (0.0-2.0); EOSINOPHIL # 0.3 TH/MM3 (0-0.4); EOSINOPHIL % 3.6 % (0.0-4.0); HEMO FLAGS DIFF FINAL; LYMPH % 15.1 % (9.0-44.0); LYMPHOCYTE # 1.1 TH/MM3 (1.0-4.8); MEAN CELL VOLUME 81.4 FL (80.0-100.0); MEAN CORPUSCULAR HEMOGLOBIN 28.6 PG (27.0-34.0); MEAN CORPUSCULAR HGB CONC 35.2 % (32.0-36.0); MONO % 6.7 % (0.0-8.0); NEUT % 73.5 % (16.0-70.0); PLATELET COUNT 395 TH/MM3 (150-450); RED BLOOD COUNT 3.08 MIL/MM3 (4.00-5.30); RED CELL DISTRIBUTION WIDTH 15.8 % (11.6-17.2); WHITE BLOOD COUNT 7.3 TH/MM3 (4.0-11.0)
[2017-04-10 11:18] LABS: BICARBONATE 23.5 MEQ/L (21.0-32.0); POTASSIUM 3.6 MEQ/L (3.5-5.1)
[2017-04-10] MEDS: ACETAMINOPHEN 325 MG TAB PO PRN ×2 (11:19→18:35)
[2017-04-10] MEDS ORDERED: MAGNESIUM CITRATE SOLN 300 ML BTL PO SCH ×2 (12:00→18:00)
--- NOTE | 2017-04-10 13:15 | PD.CONS ---
HPI History of Present Illness This is an obese 61 year old white female w 04/08/17 who came into the hospital on post multiple falls at home as well as 2 seizure episodes at home. Patient has a significant history of polysubstance abuse and seizure disorders. Patient also has a history of alcohol consumption but denies any alcohol in the past 2-3 days according to the record. She also notes chronic pain in her legs and headaches. Patient seems to be a fairly good historian when awake, but now is drowsy and tends to fall asleep during her sentences. She does note some dysphagia during this past year, and occasionally has some vomiting of her food when he gets lodged in her esophagus. She denies any recent weight gain or weight loss, denies any nausea or vomiting, currently tolerating a clear liquid diet. Patient also has a history of iron deficiency anemia and is currently being managed in the hospital with ferrous sulfate, thiamine, multivitamins and received 1 dose of IV Venofer. Patient notes she has had a colonoscopy and EGD > 1yr ago at [facility], but does not know who performed the procedures. (Leyla King) History of Present Illness She has been evaluated for severe anemia (microcytic hypochromic anemia) with EGD/Colonoscopy in May of 2016, which revealed distal reflux esophagitis, mild candidiasis in the upper part of the esophagus, 3 cm sliding hiatal hernia , mild to moderate gastritis in the antrum of the stomach, normal duodenum biopsy for celiac, 6 mm flat colon polyp in sigmoid colon, s/p cold snare polypectomy, mild diverticulosis in the descending and sigmoid colon, small internal hemorrhoids, otherwise normal colonoscopy, pathology for small bowel biopsy normal, negative for celiac, gastric antrum mild chronic gastritis, negative for h. pylor, ge junction squamocolumnar mucosa with mild chronic activity, negative for sanchez's, sigmoid polyp hyperplastic. She did have a tubular adenoma in 2013. EGD (11/13/16)---> Gastritis, GERD. Pathology revealed antral mucosa with regenerative epithelial changes and features consistent with reactive gastropathy, as may be seen with bile reflux or drug therapy. (Saira Hernandez) PFSH Past Medical History Seizure disorder COPD History of alcohol abuse History of narcotic dependence History of previous esophageal stricture status post dilation History of IV drug user Depression Anxiety HTN DVT s/p IVC filter Obesity Past Surgical History Cataract surgery (Leyla King) Past Medical History Gastritis Esophagitis Tubular adenoma Hyperplastic polyp Hiatal hernia Past Surgical History EGD/Colonoscopy (Saira Hernandez) Coded Allergies: Sulfa (Sulfonamide Antibiotics) (Unverified Allergy, Severe, Hives, ) naproxen (Unverified Allergy, Severe, unknown, 04/08/17) Medications Administered Medications Medications (Trade) Dose Ordered Sig/Wayne Route PRN Reason Start Time Stop Time Status Last Admin Dose Admin Alprazolam (Xanax) 0.5 mg Q6H PRN PO ANXIETY 04/08/17 12:45 04/09/17 22:49 Albuterol/ Ipratropium (Duoneb Neb) 1 ampule BID NEB NEB 04/08/17 20:00 04/10/17 08:07 Thiamine HCl (Vitamin B1) 100 mg DAILY PO 04/08/17 16:00 04/10/17 10:26 Folic Acid (Folate) 1 mg DAILY PO 04/08/17 16:00 04/10/17 10:26 Multivitamins (Theragran) 1 tab DAILY PO 04/08/17 16:00 04/10/17 10:26 Ferrous Sulfate (Ferrous Sulfate) 325 mg BID PO 04/09/17 09:00 04/10/17 10:26 Ascorbic Acid (Vitamin C) 250 mg BID PO 04/09/17 09:00 04/10/17 10:27 Acetaminophen (Tylenol) 650 mg Q6H PRN PO PAIN SCALE 1 TO 2 04/10/17 10:30 04/10/17 11:19 Family History Coronary artery disease Social History Patient has a history of tobacco use in her 20s, has been quit greater than 20 years ago. She reports EtOH use, none in the past 2-3 days Denies any current illicit drug use, significant history of polysubstance abuse (Leyla King) Review of Systems Constitutional: COMPLAINS OF: Fatigue Gastrointestinal: COMPLAINS OF: Difficulty Swallowing (Leyla King) GI Exam Vitals I&O Vital Signs Date Time Temp Pulse Resp B/P (MAP) Pulse Ox O2 Delivery O2 Flow Rate FiO2 04/10/17 12:31 99.0 77 18 131/62 (85) 92 04/10/17 08:50 97.9 78 18 150/67 (94) 97 04/10/17 08:07 100 04/10/17 04:55 97.5 74 18 151/91 (111) 100 04/10/17 00:27 97.8 75 18 120/68 (85) 96 04/09/17 20:42 98.4 85 18 166/80 (108) 100 04/09/17 16:46 97.3 81 18 134/79 (97) 99 04/09/17 15:46 98.1 84 20 145/91 (109) 94 I/O 04/09/17 04/09/17 04/09/17 04/10/17 04/10/17 04/10/17 07:00 15:00 23:00 07:00 15:00 23:00 Intake Total 840 ml 849 ml Balance 840 ml 849 ml Intake Oral 840 ml IV Total 849 ml # Voids 4 1 1 # Bowel Movements 2 Imaging Last Impressions Head CT 04/08/17 0743 Signed Impressions: Service Date/Time: Saturday, April 08, 2017 08:03 - CONCLUSION: 1. Chronic findings as above. No bleed or other acute intracranial abnormality. 2. Paranasal sinus disease. Ephraim Durbin MD Cervical Spine CT 04/08/17 0000 Signed Impressions: Service Date/Time: Saturday, April 08, 2017 08:03 - CONCLUSION: Intact cervical spine. Ephraim Durbin MD Carotid Artery Ultrasound 04/08/17 0000 Signed Impressions: Service Date/Time: Saturday, April 08, 2017 14:20 - CONCLUSION: No hemodynamically significant stenosis. Geraldo Brown MD Laboratory Test 04/10/17 10:25 04/10/17 12:30 White Blood Count 7.3 TH/MM3 Red Blood Count 3.08 MIL/MM3 Hemoglobin 8.8 GM/DL Hematocrit 25.0 % Mean Corpuscular Volume 81.4 FL Mean Corpuscular Hemoglobin 28.6 PG Mean Corpuscular Hemoglobin Concent 35.2 % Red Cell Distribution Width 15.8 % Platelet Count 395 TH/MM3 Mean Platelet Volume 6.8 FL Neutrophils (%) (Auto) 73.5 % Lymphocytes (%) (Auto) 15.1 % Monocytes (%) (Auto) 6.7 % Eosinophils (%) (Auto) 3.6 % Basophils (%) (Auto) 1.1 % Neutrophils # (Auto) 5.4 TH/MM3 Lymphocytes # (Auto) 1.1 TH/MM3 Monocytes # (Auto) 0.5 TH/MM3 Eosinophils # (Auto) 0.3 TH/MM3 Basophils # (Auto) 0.1 TH/MM3 CBC Comment DIFF FINAL Differential Comment Blood Urea Nitrogen 15 MG/DL Creatinine 0.79 MG/DL Random Glucose 98 MG/DL Calcium Level 8.4 MG/DL Sodium Level 136 MEQ/L Potassium Level 3.6 MEQ/L Chloride Level 104 MEQ/L Carbon Dioxide Level 23.5 MEQ/L Anion Gap 9 MEQ/L Estimat Glomerular Filtration Rate 74 ML/MIN Physical Examination HEENT: Pupils round and reactive to light; normocephalic; atraumatic; no jaundice. Throat is clean, dry NECK: Neck is supple, no JVD, no lymphadenopathy. CHEST: Chest is clear to auscultation without wheezes or rhonchi., Low air volumes CARDIAC: Regular rate and rhythm with no murmur gallop or rubs. ABDOMEN: Soft, obese,, nondistended, nontender to palpation bowel sounds are present in all four quadrants. EXTREMITIES: No clubbing, cyanosis, or edema. SKIN: Normal; no rash; no jaundice. 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 S/P EGD/Colonoscopy in May of 2016, which revealed distal reflux esophagitis, mild candidiasis in the upper part of the esophagus, 3 cm sliding hiatal hernia, mild to moderate gastritis in the antrum of the stomach, normal duodenum biopsy for celiac, 6 mm flat colon polyp in sigmoid colon, s/p cold snare polypectomy, mild diverticulosis in the descending and sigmoid colon, small internal hemorrhoids, otherwise normal colonoscopy, pathology for small bowel biopsy normal, negative for celiac, gastric antrum mild chronic gastritis, negative for h. pylor, ge junction squamocolumnar mucosa with mild chronic activity, negative for sanchez's, sigmoid polyp hyperplastic. She did have a tubular adenoma in 2013. EGD (11/13/16)---> Gastritis, GERD. Pathology revealed antral mucosa with regenerative epithelial changes and features consistent with reactive gastropathy, as may be seen with bile reflux or drug therapy. Not having any obvious GI bleeding at this time. Hematology following (2) History of gastroesophageal reflux (GERD) ICD Codes: Z87.19 - Personal history of other diseases of the digestive system Plan: PPI (3) Dysphagia ICD Codes: R13.10 - Dysphagia, unspecified Plan: Solids getting caught in upper esophagus. Plan PLAN: - EGD +/- Dilatation in am - Obtain consents - NPO after MN - SBFT - PPI - Monitor HH - Transfuse as necessary - Capsule endoscopy as outpatient - Supportive care - Further recommendations to follow based on results of above. - Pt seen and examined by Dr. Peraza and myself and this note is written on his behalf (Saira Hernandez) Leyla King Apr 10, 2017 13:15 Saira Hernandez Apr 10, 2017 14:46
--- NOTE | 2017-04-10 14:16 | PD.ONC.PN ---
Subjective Subjective Remarks Afebrile overnight Pt resting in bed ordering lunch Concerned about her Xanax at home Denies chest pain, SOB Objective Data Date Time Temp Pulse Resp B/P (MAP) Pulse Ox O2 Delivery O2 Flow Rate FiO2 04/10/17 12:31 99.0 77 18 131/62 (85) 92 04/10/17 08:50 97.9 78 18 150/67 (94) 97 04/10/17 08:07 100 04/10/17 04:55 97.5 74 18 151/91 (111) 100 04/10/17 00:27 97.8 75 18 120/68 (85) 96 04/09/17 20:42 98.4 85 18 166/80 (108) 100 04/09/17 16:46 97.3 81 18 134/79 (97) 99 04/09/17 15:46 98.1 84 20 145/91 (109) 94 04/10/17 04/10/17 04/10/17 07:00 15:00 23:00 Intake Total 849 ml Balance 849 ml Result Diagram: 04/10/17 1025 04/10/17 1025 Laboratory Results Laboratory Tests Test 04/10/17 10:25 04/10/17 12:30 White Blood Count 7.3 TH/MM3 Red Blood Count 3.08 MIL/MM3 Hemoglobin 8.8 GM/DL Hematocrit 25.0 % Mean Corpuscular Volume 81.4 FL Mean Corpuscular Hemoglobin 28.6 PG Mean Corpuscular Hemoglobin Concent 35.2 % Red Cell Distribution Width 15.8 % Platelet Count 395 TH/MM3 Mean Platelet Volume 6.8 FL Neutrophils (%) (Auto) 73.5 % Lymphocytes (%) (Auto) 15.1 % Monocytes (%) (Auto) 6.7 % Eosinophils (%) (Auto) 3.6 % Basophils (%) (Auto) 1.1 % Neutrophils # (Auto) 5.4 TH/MM3 Lymphocytes # (Auto) 1.1 TH/MM3 Monocytes # (Auto) 0.5 TH/MM3 Eosinophils # (Auto) 0.3 TH/MM3 Basophils # (Auto) 0.1 TH/MM3 CBC Comment DIFF FINAL Differential Comment Blood Urea Nitrogen 15 MG/DL Creatinine 0.79 MG/DL Random Glucose 98 MG/DL Calcium Level 8.4 MG/DL Sodium Level 136 MEQ/L Potassium Level 3.6 MEQ/L Chloride Level 104 MEQ/L Carbon Dioxide Level 23.5 MEQ/L Anion Gap 9 MEQ/L Estimat Glomerular Filtration Rate 74 ML/MIN Thyroid Stimulating Hormone 3rd Gen 0.751 uIU/ML Administered Medications Medications (Trade) Dose Ordered Sig/Wayne Route PRN Reason Start Time Stop Time Status Last Admin Dose Admin Alprazolam (Xanax) 0.5 mg Q6H PRN PO ANXIETY 04/08/17 12:45 04/09/17 22:49 Albuterol/ Ipratropium (Duoneb Neb) 1 ampule BID NEB NEB 04/08/17 20:00 04/10/17 08:07 Thiamine HCl (Vitamin B1) 100 mg DAILY PO 04/08/17 16:00 04/10/17 10:26 Folic Acid (Folate) 1 mg DAILY PO 04/08/17 16:00 04/10/17 10:26 Multivitamins (Theragran) 1 tab DAILY PO 04/08/17 16:00 04/10/17 10:26 Ferrous Sulfate (Ferrous Sulfate) 325 mg BID PO 04/09/17 09:00 04/10/17 10:26 Ascorbic Acid (Vitamin C) 250 mg BID PO 04/09/17 09:00 04/10/17 10:27 Acetaminophen (Tylenol) 650 mg Q6H PRN PO PAIN SCALE 1 TO 2 04/10/17 10:30 04/10/17 11:19 Objective Remarks GENERAL: Overweight older female resting in bed in no acute distress SKIN: Warm and dry. HEAD: Normocephalic. EYES: No injection or drainage. NECK: Supple, trachea midline. CARDIOVASCULAR: Regular rate and rhythm without murmurs. RESPIRATORY: Clear anteriorly. Breathing unlabored. GASTROINTESTINAL: Abdomen soft, non-tender, nondistended. EXTREMITIES: No cyanosis, or edema. MUSCULOSKELETAL: Generalized weakness NEUROLOGICAL: Moving all extremities. No obvious focal deficit. Assessment/Plan Problem List: (1) Iron deficiency anemia ICD Codes: D50.9 - Iron deficiency anemia, unspecified Plan: 04/10/17: Patient tolerated iron sucrose last night. Await GI consult and recommendations. We will plan to give transfusion for hemoglobin less than 8 or symptomatic. -- Pt reports she has had previous endoscopies and does not remember what was found -- Currently asymptomatic from her RAD -- Will need followup as outpatient (2) Seizure ICD Codes: R56.9 - Seizure Status: Acute Plan: -- Keppra level pending -- Per primary Assessment 61 y/o female admitted with AMS, fall; hematology consulted for iron deficiency anemia Attending Statement The exam, history, and the medical decision-making described in the above note were completed with the assistance of the mid-level provider. I reviewed and agree with the findings presented. I attest that I had a [id number] encounter with the patient on the same day, and personally performed and documented my assessment and findings in the medical record. Denies any new complain Tolerated iron infusion last night very well. Continue IV iron infusion as an outpatient. await G.I. consult Eleni Maya Apr 10, 2017 14:16 Emmy Rodríguez MD Apr 11, 2017 01:16
[2017-04-10] MEDS ORDERED: BISACODYL EC 5 MG TABEC PO ONE (18:00)
[2017-04-10] MEDS: ALPRAZolam 0.5 MG TAB PO PRN (18:41)
--- NOTE | 2017-04-10 19:46 | ECHRPT ---
Indication: SYNCOPE CONCLUSIONS The left ventricular systolic function is normal with an estimated ejection fraction in the range of 60-65%. Doppler parameters are consistent with impaired left ventricular relaxtion (grade 1 diastolic dysfun ction). There is mild tricuspid valve regurgitation. BP: 182 / 102 HR: 88 Rhythm: Sinus MEASUREMENTS (Male / Female) Normal Values Technical Quality:Fair 2D ECHO LV Diastolic Diameter PLAX 4.8 cm 4.2 - 5.9 / 3.9 - 5.3 cm LV Systolic Diameter PLAX 3.4 cm IVS Diastolic Thickness 1.0 cm 0.6 - 1.0 / 0.6 - 0.9 cm LVPW Diastolic Thickness 1.0 cm 0.6 - 1.0 / 0.6 - 0.9 cm LV Relative Wall Thickness 0.4 LVOT Diameter 1.9 cm Aortic Root Diameter 3.0 cm LA Systolic Diameter LX 3.7 cm 3.0 - 4.0 / 2.7 - 3.8 cm M-MODE AV Cusp Separation MM 1.8 cm DOPPLER AV Peak Velocity 190.0 cm/s AV Peak Gradient 14.4 mmHg AV Mean Gradient 6.0 mmHg AV Velocity Time Integral 30.2 cm LVOT Peak Velocity 107.0 cm/s LVOT Peak Gradient 4.6 mmHg LVOT Velocity Time Integral 19.2 cm LVOT Cardiac Index 2320.3 cm/minm AV Area Cont Eq vti 1.8 cm AV Area Cont Eq pk 1.6 cm Mitral E Point Velocity 77.0 cm/s Mitral A Point Velocity 89.3 cm/s Mitral E to A Ratio 0.9 LV E' Lateral Velocity 9.7 cm/s Mitral E to LV E' Lateral Ratio 8.0 LV E' Septal Velocity 7.0 cm/s Mitral E to LV E' Septal Ratio 11.0 TR Peak Velocity 243.0 cm/s TR Peak Gradient 23.6 mmHg Right Atrial Pressure 10.0 mmHg Pulmonary Artery Systolic Pressu 33.6 mmHg Right Ventricular Systolic Press 33.6 mmHg PV Peak Velocity 88.0 cm/s PV Peak Gradient 3.1 mmHg FINDINGS LEFT VENTRICLE Normal left ventricular size. Mild concentric left ventricular hypertrophy. The left ventricular systolic function is normal with an estimated ejection fraction in the range of 60-65%. Doppler parameters are consistent with impaired left ventricular relaxtion (grade 1 diastolic dysfun ction). RIGHT VENTRICLE Normal right ventricular size and systolic function. LEFT ATRIUM The left atrial size is moderately dilated. RIGHT ATRIUM The right atrial size is normal. ATRIAL SEPTUM Normal atrial septal thickness. AORTA The aortic root and proximal ascending aorta are normal in size on limited imaging. MITRAL VALVE Structurally normal mitral valve. No mitral valve stenosis or regurgitation. AORTIC VALVE Trileaflet aortic valve. No aortic valve stenosis or regurgitation. TRICUSPID VALVE There is mild tricuspid valve regurgitation. The estimated pulmonary arterial pressure is 33.6 mmHg. Structurally normal tricuspid valve. No tricuspid valve stenosis. PULMONARY VALVE No pulmonary valve regurgitation or stenosis. VESSELS The inferior vena cava is normal in size. PERICARDIUM No pericardial effusion. Dean Matthews DO (Electronically Signed) Final Date:10 April 2017 19:44
--- NOTE | 2017-04-10 19:48 | HM ---
Date Performed: 04/08/2017 Time Performed: 18:59:00 HOOKUP DATE: 04/08/17 06:59:00 PM Sun ANALYSIS START TIME: 04/08/2017 7:04:00 PM ANALYSIS END TIME: 04/09/2017 7:08:00 PM PATIENT AGE: 61 PATIENT HEIGHT PATIENT WEIGHT DRUG LIST PATIENT DIAGNOSIS: AMS TEST NARRATIVE: The patient's average heart rate was 89 BPM. No episodes of tachycardia wer e noted. No episodes of bradycardia were noted. No pauses exceeding 2.0 seconds were noted. 19 ventricular ectopics, which represented < 1% of the total beat count, were noted. The highest rupinder tricular ectopic frequency occurred from 04:00 AM to 05:00 AM Mon. During this time 3 VE(s) occurred . Ventricular ectopics were observed as 19 isolated beat(s) only. No couplets or runs were noted. 1 supraventricular ectopics, which represented < 1% of the total beat count, were noted. The high est supraventricular ectopic frequency occurred from 06:00 AM to 07:00 AM Mon. During this time 1 SV E(s) occurred. No episodes of ST depression (defined as -1.0 mm or more) were noted in channel 1. No episodes of ST depression (defined as -1.0 mm or more) were noted in channel 2. In channel 3, a single episode of ST depression (defined as -1.0 mm or more) occurred at 04:35:48 AM Mon with a maxi mum depression of -3.4 mm. TEST INTERPRETATION: 1. Patient is in Sinus rhythm throughout the recording 2. Average heart rate is 89 bpm, minimum heart rate is 61 bpm, peaked heart rate 112 bpm 3. There are 19 ventricular premature beats, without any couplets or runs of ventricula r tachycardia 4. There is only 1 atrial premature beat noted 5. There are no pauses noted 6. There is no diary returned 7. In conclusion, unremarkable holter monitor recording. Signed by : Mike Khan
[2017-04-10] MEDS: ALPRAZolam 0.25 MG TAB PO SCH (23:08)
[2017-04-10] MEDS: levETIRAcetam 250 MG TAB PO SCH (23:09)
[2017-04-10] MEDS: levETIRAcetam 500 MG TAB PO SCH (23:09)
[2017-04-10] MEDS: BISACODYL 10 MG SUPP RECTAL SCH (23:09)
[2017-04-11] VITALS: BP 136/67; PULSE 77; RESP 20; TEMP 98.4; O2SAT 99
[2017-04-11 04:00] VITALS: BP 134/60; PULSE 82; RESP 20; TEMP 97.8; O2SAT 98
[2017-04-11] MEDS: ALPRAZolam 0.25 MG TAB PO SCH ×3 (05:09→22:49)
[2017-04-11] MEDS: ACETAMINOPHEN 325 MG TAB PO PRN ×2 (05:11→15:23)
[2017-04-11 07:55] LABS: HEMATOCRIT 27.5 % (35.0-46.0); REVIEW FLAG FINAL
[2017-04-11] MEDS: RESP: ALBUTEROL 2.5 MG/IPRATROPIUM 0.5 MG NEB (SCH) NEB (08:00)
[2017-04-11 08:19] VITALS: BP 124/72; PULSE 79; RESP 20; TEMP 98.2; O2SAT 98
--- NOTE | 2017-04-11 08:22 | HHI.PR ---
Subjective Remarks no complains having BM from prep- looking forward to procedure this am Objective Vitals Vital Signs Date Time Temp Pulse Resp B/P (MAP) Pulse Ox O2 Delivery O2 Flow Rate FiO2 04/11/17 08:19 98.2 79 20 124/72 (89) 98 04/11/17 04:00 97.8 82 20 134/60 (84) 98 04/11/17 00:00 98.4 77 20 136/67 (90) 99 04/10/17 20:15 97 04/10/17 20:00 98.3 98 20 123/64 (83) 98 04/10/17 16:00 98.0 86 18 127/63 (84) 98 04/10/17 12:31 99.0 77 18 131/62 (85) 92 04/10/17 08:50 97.9 78 18 150/67 (94) 97 I/O 04/10/17 04/10/17 04/10/17 04/11/17 04/11/17 04/11/17 07:00 15:00 23:00 07:00 15:00 23:00 Intake Total 849 ml 580 ml 570 ml Balance 849 ml 580 ml 570 ml Intake Oral 580 ml 570 ml IV Total 849 ml # Voids 1 3 2 # Bowel Movements 4 Result Diagram: 04/11/17 0706 04/10/17 1025 Imaging Last Impressions Head CT 04/08/17 0743 Signed Impressions: Service Date/Time: Saturday, April 08, 2017 08:03 - CONCLUSION: 1. Chronic findings as above. No bleed or other acute intracranial abnormality. 2. Paranasal sinus disease. Ephraim Durbin MD Cervical Spine CT 04/08/17 0000 Signed Impressions: Service Date/Time: Saturday, April 08, 2017 08:03 - CONCLUSION: Intact cervical spine. Ephraim Durbin MD Carotid Artery Ultrasound 04/08/17 0000 Signed Impressions: Service Date/Time: Saturday, April 08, 2017 14:20 - CONCLUSION: No hemodynamically significant stenosis. Geraldo Brown MD Objective Remarks awake and alert, oriented x 3 anicteric lungs clear regular rhythm abdomen- flabby soft extremities no edema neuro exam- non focal A/P Assessment and Plan A/P Iron deficiency- S/P IV Venofer. on Iron supplements Hematology ff. GI work up in progress. OP ff up with Hematologyu- Dr. Rodríguez GI complaints of dysphagia- reviewed records was here in the past and had EGD/ colonoscopy- not impressive seen by GI- for EGD and possible dilatation in am on PPI History of Anxiety disorder. on Xanax 2 mg tid per patient - reviewed meds from previous visits- she was only on 0.5 mg po tid prn will start Xanax 0.125 mg po tid history fo seizure disorder- continue on Keppra 750 mg po bid History of hypertension- on Amlodipine 10 mg daily, Echo unremarkable PCP- Dr. Sanon- OP ff up per patient denies chronic alcohol use/denies substance abuse True Duncan MD Apr 11, 2017 08:22
[2017-04-11] MEDS: levETIRAcetam 500 MG TAB PO SCH ×2 (09:08→22:49)
[2017-04-11] MEDS: FERROUS SULFATE 325 MG (65 MG ELEMENTAL IRON) TAB PO SCH ×2 (09:09→22:51)
[2017-04-11] MEDS: MULTIVITAMIN TAB PO SCH (09:09)
[2017-04-11] MEDS: FOLIC ACID 1 MG TAB PO SCH (09:09)
[2017-04-11] MEDS: levETIRAcetam 250 MG TAB PO SCH ×2 (09:09→22:51)
[2017-04-11] MEDS: THIAMINE HCL 100 MG TAB PO SCH (09:10)
[2017-04-11] MEDS: ASCORBIC ACID 500 MG TAB PO SCH ×2 (09:10→22:51)
[2017-04-11] MEDS: ALPRAZolam 0.5 MG TAB PO PRN (09:14)
--- NOTE | 2017-04-11 11:24 | GIPROC ---
[facility] [address] [facility], [address] EGD PROCEDURE REPORT EXAM DATE: 04/11/2017 PATIENT NAME: Domonique Dudley MR #: [id number] BIRTHDATE: 1955 ATTENDING: Bladimir Peraza MD ORDER #: [id number] PIPE RACKER: Lico Cavazos and Jena Mancini STATUS: inpatient INDICATIONS: The patient is a 61 yr old female here for an EGD due to history of esophageal reflux and dysphagia PROCEDURE PERFORMED: EGD w/ biopsy EGD w/ dilation of esophagus via guidewire MEDICATIONS: None and Per Anesthesia. TOPICAL ANESTHETIC: CONSENT: The patient understands the risks and benefits of the procedure and understands that these risks include, but are not limited to: sedation, allergic reaction, infection, perforation and/or bleeding. Alternative means of evaluation and treatment include, among others: physical exam, x-rays, and/or surgical intervention. The patient elects to proceed with this endoscopic procedure. medical equipment was checked for proper function. Hand hygiene and appropriate measures for infection prevention was taken. After the risks, benefits and alternatives of the procedure were thoroughly explained, Informed consent was verified, confirmed and timeout was successfully executed by the treatment team. The patient was anesthetized with topical anesthesia and the Pentax [id number] endoscope was introduced through the mouth and advanced to the second portion of the duodenum. Retroflexed views revealed a hiatal hernia The gastroscope was then slowly withdrawn and removed. ESOPHAGUS: There was LA Class A esophagitis noted. A biopsy was performed using cold forceps. Sample sent for histology. There was a short fibrotic stricture in the distal esophagus. The stricture was easily traversable. The stricture was dilated using a 17mm (51Fr) savary dilator over guidewire. STOMACH: There was erythematous moderate gastritis in the gastric body. A biopsy was performed using cold forceps. Sample sent for histology. DUODENUM: The duodenal mucosa appeared normal in the bulb and second portion of the duodenum. ADVERSE EVENTS: There were no complications. IMPRESSIONS: 1. There was LA Class A esophagitis noted; biopsy was performed 2. There was a short stricture in the distal esophagus; The stricture was dilated using a 17mm (51Fr) savary dilator over guidewire 3. There was erythematous gastritis in the gastric body; biopsy was performed 4. Normal duodenal mucosa in the bulb and second portion of the duodenum 5. Retroflexed views revealed a hiatal hernia RECOMMENDATIONS: 1. Await biopsy results. Biopsy results will not be ready for 7-10 days. If you don't hear from us in two weeks, call our office for biopsy results. 2. Anti-reflux regimen 3. Continue PPI 4. Avoid NSAIDS PATIENT CONDITION: stable DISPOSITION: Inpatient REPEAT EXAM: Return 1 year EGD with dilatation Bladimir Peraza MD eSigned: Bladimir Peraza MD 04/11/2017 11:24 AM cc: PATIENT NAME: Domonique Dudley MR#: [id number]
[2017-04-11] MEDS ORDERED: PROPOFOL 200 MG/20 ML AMP ONE (11:45)
[2017-04-11 12:00] VITALS: BP 149/66; PULSE 72; RESP 20; TEMP 97.6; O2SAT 97
--- NOTE | 2017-04-11 13:29 | RADRPT ---
EXAM DATE/TIME: 04/11/2017 12:09 [place] COMPARISON: CT ABDOMEN & PELVIS W CONTRAST, November 10, 2016, 13:37. INDICATIONS : Anemia FLUORO TIME: 1.7 minutes IMAGE COUNT: 9 CONTRAST: Entero Vu 24% Barium Sulfate (24% w/v, 20% w/w) IMAGING TIME(S): 15 min, 30 min MEDICAL HISTORY : Hypertension. Hypercholesterolemia. SURGICAL HISTORY : IVC filter placement. ENCOUNTER: Initial ACUITY: 3 days PAIN SCORE: 0/10 LOCATION: Abdomen FINDINGS: Preliminary film is unremarkable. The stomach is grossly unremarkable. Examination of the small bowel demonstrates normal mucosal pattern involving the jejunum and ileum. There is no evidence of mass or obstruction. No intraluminal filling defects are identified. Small bowel transit time is normal at <30>> minutes. Fluoroscopy of the abdomen and terminal ileum demonst rates no abnormality. CONCLUSION: Normal examination. The cecum is transverse therefore is difficult to clearly identify the terminal i leum but I don't see any stricture or mass. Linwood Sanders MD on April 11, 2017 at 13:27 Board Certified Radiologist. This report was verified electronically.
--- NOTE | 2017-04-11 13:39 | PD.ONC.PN ---
Subjective Subjective Remarks Afebrile Tolerated endoscopy this am Still having diarrhea from prep Has headache; was recently given some Tylenol Attempting to order lunch Objective Data Date Time Temp Pulse Resp B/P (MAP) Pulse Ox O2 Delivery O2 Flow Rate FiO2 04/11/17 11:41 97.6 77 18 115/69 (84) 98 Room Air 04/11/17 08:19 98.2 79 20 124/72 (89) 98 04/11/17 04:00 97.8 82 20 134/60 (84) 98 04/11/17 00:00 98.4 77 20 136/67 (90) 99 04/10/17 20:15 97 04/10/17 20:00 98.3 98 20 123/64 (83) 98 04/10/17 16:00 98.0 86 18 127/63 (84) 98 04/11/17 04/11/17 04/11/17 07:00 15:00 23:00 Intake Total 570 ml Balance 570 ml Result Diagram: 04/11/17 0706 04/10/17 1025 Laboratory Results Laboratory Tests Test 04/11/17 07:06 Hemoglobin 9.1 GM/DL Hematocrit 27.5 % Administered Medications Medications (Trade) Dose Ordered Sig/Wayne Route PRN Reason Start Time Stop Time Status Last Admin Dose Admin IV Flush (NS Flush) 2 ml UNSCH PRN IV FLUSH FLUSH AFTER USING IV ACCESS 04/08/17 07:45 04/11/17 10:08 Alprazolam (Xanax) 0.5 mg Q6H PRN PO ANXIETY 04/08/17 12:45 04/11/17 09:14 Albuterol/ Ipratropium (Duoneb Neb) 1 ampule BID NEB NEB 04/08/17 20:00 04/11/17 08:00 Thiamine HCl (Vitamin B1) 100 mg DAILY PO 04/08/17 16:00 04/11/17 09:10 Folic Acid (Folate) 1 mg DAILY PO 04/08/17 16:00 04/11/17 09:09 Multivitamins (Theragran) 1 tab DAILY PO 04/08/17 16:00 04/11/17 09:09 Ferrous Sulfate (Ferrous Sulfate) 325 mg BID PO 04/09/17 09:00 04/11/17 09:09 Ascorbic Acid (Vitamin C) 250 mg BID PO 04/09/17 09:00 04/11/17 09:10 Acetaminophen (Tylenol) 650 mg Q6H PRN PO PAIN SCALE 1 TO 2 04/10/17 10:30 04/11/17 05:11 Amlodipine Besylate (Norvasc) 10 mg DAILY PO 04/11/17 09:00 04/11/17 09:09 Magnesium Citrate (Citroma Liq) 300 ml ONCE PO 04/10/17 18:00 04/11/17 17:59 04/11/17 03:21 Bisacodyl (Dulcolax Supp) 10 mg HS RECTAL 04/10/17 21:00 04/10/17 23:09 Levetriacetam (Keppra) 250 mg Q12HR PO 04/10/17 21:00 04/11/17 09:09 Levetriacetam (Keppra) 500 mg Q12HR PO 04/10/17 21:00 04/11/17 09:08 Alprazolam (Xanax) 0.125 mg Q8HR PO 04/10/17 22:00 04/11/17 05:09 Objective Remarks GENERAL: Overweight older female resting in bed in no acute distress SKIN: Warm and dry. HEAD: Normocephalic. EYES: No injection or drainage. NECK: Supple, trachea midline. CARDIOVASCULAR: Regular rate and rhythm without murmurs. RESPIRATORY: Clear anteriorly. Breathing unlabored. GASTROINTESTINAL: Abdomen soft, non-tender, nondistended. EXTREMITIES: No cyanosis, or edema. MUSCULOSKELETAL: Generalized weakness NEUROLOGICAL: Moving all extremities. No obvious focal deficit. Assessment/Plan Problem List: (1) Iron deficiency anemia ICD Codes: D50.9 - Iron deficiency anemia, unspecified Plan: 04/11/17: Pt had endoscopy this am; showed some gastritis, biopsies taken. Plan to followup in clinic for further iron transfusion. FS faxed to [facility]. Monitor CBC. Transfuse for Hgb less than 8. -- Pt reports she has had previous endoscopies and does not remember what was found -- Currently asymptomatic from her RAD -- Will need followup as outpatient (2) Seizure ICD Codes: R56.9 - Seizure Status: Acute Plan: -- Keppra level pending -- Per primary Assessment 61 y/o female admitted with AMS, fall; hematology consulted for iron deficiency anemia Attending Statement The exam, history, and the medical decision-making described in the above note were completed with the assistance of the mid-level provider. I reviewed and agree with the findings presented. I attest that I had a [id number] encounter with the patient on the same day, and personally performed and documented my assessment and findings in the medical record. Loose BM For EGD today H and H is stable Okay to discharge from my standpoint pt can be followed For further iron infusion in our clinic Eleni Maya Apr 11, 2017 13:39 Emmy Rodríguez MD Apr 11, 2017 23:41
[2017-04-11 15:28] VITALS: BP 144/71; PULSE 79; RESP 20; TEMP 97.1; O2SAT 99
[2017-04-11 20:30] VITALS: BP 143/65; PULSE 79; RESP 17; TEMP 98.7; O2SAT 100
[2017-04-11] MEDS: BISACODYL 10 MG SUPP RECTAL SCH (21:00)
[2017-04-12] VITALS: BP 104/58; PULSE 80; RESP 20; TEMP 98.7; O2SAT 97
[2017-04-12] MEDS: ALPRAZolam 0.5 MG TAB PO PRN (03:54)
[2017-04-12 04:00] VITALS: BP 117/74; PULSE 76; RESP 20; TEMP 97; O2SAT 96
[2017-04-12] MEDS: ALPRAZolam 0.25 MG TAB PO SCH ×2 (06:45→14:35)
[2017-04-12 08:13] VITALS: BP 142/75; PULSE 70; RESP 18; TEMP 96.4; O2SAT 98
--- NOTE | 2017-04-12 08:24 | PD.ONC.PN ---
Subjective Subjective Remarks denies new c/o able to swallow better/ Objective Data Date Time Temp Pulse Resp B/P (MAP) Pulse Ox O2 Delivery O2 Flow Rate FiO2 04/12/17 08:13 96.4 70 18 142/75 (97) 98 04/12/17 04:00 97.0 76 20 117/74 (88) 96 04/12/17 00:00 98.7 80 20 104/58 (73) 97 04/11/17 20:30 98.7 79 17 143/65 (91) 100 04/11/17 16:23 18 04/11/17 15:28 97.1 79 20 144/71 (95) 99 04/11/17 12:00 97.6 72 20 149/66 (93) 97 04/11/17 11:41 97.6 77 18 115/69 (84) 98 Room Air 04/12/17 04/12/17 04/12/17 07:00 15:00 23:00 Intake Total 220 ml Output Total 300 ml Balance -80 ml Result Diagram: 04/11/1770504/10/17 1025 Administered Medications Medications (Trade) Dose Ordered Sig/Wayne Route PRN Reason Start Time Stop Time Status Last Admin Dose Admin IV Flush (NS Flush) 2 ml UNSCH PRN IV FLUSH FLUSH AFTER USING IV ACCESS 04/08/17 07:45 04/11/17 10:08 Alprazolam (Xanax) 0.5 mg Q6H PRN PO ANXIETY 04/08/17 12:45 04/12/17 03:54 Thiamine HCl (Vitamin B1) 100 mg DAILY PO 04/08/17 16:00 04/11/17 09:10 Folic Acid (Folate) 1 mg DAILY PO 04/08/17 16:00 04/11/17 09:09 Multivitamins (Theragran) 1 tab DAILY PO 04/08/17 16:00 04/11/17 09:09 Ferrous Sulfate (Ferrous Sulfate) 325 mg BID PO 04/09/17 09:00 04/11/17 22:51 Ascorbic Acid (Vitamin C) 250 mg BID PO 04/09/17 09:00 04/11/17 22:51 Acetaminophen (Tylenol) 650 mg Q6H PRN PO PAIN SCALE 1 TO 2 04/10/17 10:30 04/11/17 15:23 Amlodipine Besylate (Norvasc) 10 mg DAILY PO 04/11/17 09:00 04/11/17 09:09 Bisacodyl (Dulcolax Supp) 10 mg HS RECTAL 04/10/17 21:00 04/10/17 23:09 Levetriacetam (Keppra) 250 mg Q12HR PO 04/10/17 21:00 04/11/17 22:51 Levetriacetam (Keppra) 500 mg Q12HR PO 04/10/17 21:00 04/11/17 22:49 Alprazolam (Xanax) 0.125 mg Q8HR PO 04/10/17 22:00 04/12/17 06:45 Objective Remarks GENERAL: Well-nourished, well-developed patient. SKIN: Warm and dry. HEAD: Normocephalic. EYES: No scleral icterus. No injection or drainage. NECK: Supple, trachea midline. No JVD or lymphadenopathy. LYMPHATIC: No adenopathy. CARDIOVASCULAR: Regular rate and rhythm without murmurs. RESPIRATORY: Breath sounds equal bilaterally. No accessory muscle use. GASTROINTESTINAL: Abdomen soft, non-tender, nondistended. EXTREMITIES: No cyanosis, or edema. MUSCULOSKELETAL: Adequate muscle tone. NEUROLOGICAL: No obvious focal deficit. Awake, alert, and oriented x3. PSYCHIATRIC: Appropriate mood and affect; insight and judgment normal. Assessment/Plan Problem List: (1) Iron deficiency anemia ICD Codes: D50.9 - Iron deficiency anemia, unspecified Plan: 04/12/17 S/P EGD with dilation. Dysphagia improved. Ok to d/c, FU as outpt for iron infusion. Advice her to call office to make appt. Pt is apprehensive to go home. she lives in group female home. scared of bad neighbor ar[place]. 04/11/17: Pt had endoscopy this am; showed some gastritis, biopsies taken. Plan to followup in clinic for further iron transfusion. FS faxed to [facility]. Monitor CBC. Transfuse for Hgb less than 8. -- Pt reports she has had previous endoscopies and does not remember what was found -- Currently asymptomatic from her RAD -- Will need followup as outpatient (2) Seizure ICD Codes: R56.9 - Seizure Status: Acute Plan: -- Keppra level pending -- Per primary Assessment 61 y/o female admitted with AMS, fall; hematology consulted for iron deficiency anemia Problem Qualifiers (1) Iron deficiency anemia: Qualified Codes: D50.9 - Iron deficiency anemia, unspecified Emmy Rodríguez MD Apr 12, 2017 08:24
--- NOTE | 2017-04-12 09:52 | HHI.PR ---
Subjective Remarks no complains d/w her results of EGD advised on refluex measures and eating on time no NSAIDs Objective Vitals Vital Signs Date Time Temp Pulse Resp B/P (MAP) Pulse Ox O2 Delivery O2 Flow Rate FiO2 04/12/17 08:13 96.4 70 18 142/75 (97) 98 04/12/17 04:00 97.0 76 20 117/74 (88) 96 04/12/17 00:00 98.7 80 20 104/58 (73) 97 04/11/17 20:30 98.7 79 17 143/65 (91) 100 04/11/17 16:23 18 04/11/17 15:28 97.1 79 20 144/71 (95) 99 04/11/17 12:00 97.6 72 20 149/66 (93) 97 04/11/17 11:41 97.6 77 18 115/69 (84) 98 Room Air I/O 04/11/17 04/11/17 04/11/17 04/12/17 04/12/17 04/12/17 07:00 15:00 23:00 07:00 15:00 23:00 Intake Total 570 ml 700 ml 220 ml Output Total 300 ml Balance 570 ml 700 ml -80 ml Intake Oral 570 ml 600 ml 220 ml Other 100 ml Output Urine Total 300 ml # Voids 2 3 1 # Bowel Movements 4 0 Result Diagram: 04/11/17 0706 04/10/17 1025 Imaging Last Impressions Small Bowel X-Ray 04/11/17 0000 Signed Impressions: Service Date/Time: Tuesday, April 11, 2017 12:09 - CONCLUSION: Normal examination. The cecum is transverse therefore is difficult to clearly identify the terminal ileum but I don't see any stricture or mass. Linwood Sanders MD Head CT 04/08/17 0743 Signed Impressions: Service Date/Time: Saturday, April 08, 2017 08:03 - CONCLUSION: 1. Chronic findings as above. No bleed or other acute intracranial abnormality. 2. Paranasal sinus disease. Ephraim Durbin MD Cervical Spine CT 04/08/17 0000 Signed Impressions: Service Date/Time: Saturday, April 08, 2017 08:03 - CONCLUSION: Intact cervical spine. Ephraim Durbin MD Carotid Artery Ultrasound 04/08/17 0000 Signed Impressions: Service Date/Time: Saturday, April 08, 2017 14:20 - CONCLUSION: No hemodynamically significant stenosis. Geraldo Brown MD Objective Remarks awake and alert, oriented x 3 anicteric lungs clear regular rhythm abdomen- flabby soft, n guarding extremities no edema neuro exam- non focal Procedures 04/11- EGD- esophagitis with stricture on distal esophagus biopsy and esophgeal dilation done A/P Assessment and Plan A/P Iron deficiency- S/P IV Venofer. on Iron supplements Hematology ff. GI work up in progress. OP ff up with Hematology- Dr. Rodríguez continue on Fe s04 325 mg po bid S/P EGD- with esophagieal stricture post dilatation and esophagitis on PPI daily History of Anxiety disorder. on Xanax 2 mg tid per patient - reviewed meds from previous visits- she was only on 0.5 mg po tid prn will start Xanax 0.125 mg po tid history fo seizure disorder- continue on Keppra 750 mg po bid History of hypertension- on Amlodipine 10 mg daily, Echo unremarkable PCP- Dr. Sanon- OP ff up per patient denies chronic alcohol use/denies substance abuse OP ff up with Hematology OP ff up with GI CM consult- needs help with transportation home True Nath MD Apr 12, 2017 09:52
[2017-04-12] MEDS ORDERED: AMLO10 PO (10:00)
[2017-04-12] MEDS ORDERED: LEVE250 PO (10:00)
[2017-04-12] MEDS ORDERED: FERR325T20 PO (10:07)
[2017-04-12] MEDS: FOLIC ACID 1 MG TAB PO SCH (10:09)
[2017-04-12] MEDS: MULTIVITAMIN TAB PO SCH (10:09)
[2017-04-12] MEDS: FERROUS SULFATE 325 MG (65 MG ELEMENTAL IRON) TAB PO SCH (10:09)
[2017-04-12] MEDS: levETIRAcetam 250 MG TAB PO SCH (10:09)
[2017-04-12] MEDS: levETIRAcetam 500 MG TAB PO SCH (10:09)
[2017-04-12] MEDS: ASCORBIC ACID 500 MG TAB PO SCH (10:10)
[2017-04-12] MEDS: THIAMINE HCL 100 MG TAB PO SCH (10:10)
--- NOTE | 2017-04-12 10:10 | HHI.DS ---
Discharge Summary Admission Date Apr 09, 2017 at 11:31 Discharge Date: Apr 12, 2017 Admitting Diagnosis altered mental status, prescription drug overdose (1) Iron deficiency anemia ICD Code: D50.9 - Iron deficiency anemia, unspecified Diagnosis: Principal (2) S/P dilatation of esophageal stricture ICD Code: Z98.890 - Other specified postprocedural states; Z87.19 - Personal history of other diseases of the digestive system Diagnosis: Principal Procedures 04/11- EGD- esophagitis with stricture on distal esophagus biopsy and esophgeal dilation done Brief History - From Admission Written by Carmen Álvarez, acting as scribe for Dr. Hidalgo on 04/08/17 at 12: 31. This is a 67-year-old female with a past medical history significant for seizure disorder, COPD and previous history of polysubstance abuse and narcotic dependence who presents to the ED status post fall at home. Patient reports that she has fallen multiple times in the past 2 nights. She reports two seizure episodes last night. She endorses loss of consciousness. She denies any associated bowel or bladder incontinence. She denies biting her tongue. She endorses dyspnea with a history of COPD and reports using the nebulizer at home. She denies any chest pain. She recently obtained a general practitioner but does not follow with neurology. She reports occasional alcohol consumption but denies having any alcohol the past 2-3 days. She has a prescription for Xanax 2 mg three times a day as needed. CBC/BMP: 04/11/17 0706 04/10/17 1025 Significant Findings Laboratory Tests Test 04/09/17 10:55 04/10/17 10:25 04/10/17 12:30 04/11/17 07:06 Red Blood Count 3.50 MIL/MM3 (4.00-5.30) 3.08 MIL/MM3 (4.00-5.30) Hemoglobin 9.3 GM/DL (11.6-15.3) 8.8 GM/DL (11.6-15.3) 9.1 GM/DL (11.6-15.3) Hematocrit 28.2 % (35.0-46.0) 25.0 % (35.0-46.0) 27.5 % (35.0-46.0) Mean Corpuscular Hemoglobin 26.6 PG (27.0-34.0) Neutrophils (%) (Auto) 75.3 % (16.0-70.0) 73.5 % (16.0-70.0) Sodium Level 133 MEQ/L (136-145) Levetiracetam (Keppra) Level <2.0 mcg/mL (12.0 - 46.0) Mean Platelet Volume 6.8 FL (7.0-11.0) Calcium Level 8.4 MG/DL (8.5-10.1) Estimat Glomerular Filtration Rate 74 ML/MIN (>89) Imaging Last Impressions Small Bowel X-Ray 04/11/17 0000 Signed Impressions: Service Date/Time: Tuesday, April 11, 2017 12:09 - CONCLUSION: Normal examination. The cecum is transverse therefore is difficult to clearly identify the terminal ileum but I don't see any stricture or mass. Linwood Sanders MD Head CT 04/08/17 0743 Signed Impressions: Service Date/Time: Saturday, April 08, 2017 08:03 - CONCLUSION: 1. Chronic findings as above. No bleed or other acute intracranial abnormality. 2. Paranasal sinus disease. Ephraim Durbin MD Cervical Spine CT 04/08/17 0000 Signed Impressions: Service Date/Time: Saturday, April 08, 2017 08:03 - CONCLUSION: Intact cervical spine. Ephraim Durbin MD Carotid Artery Ultrasound 04/08/17 0000 Signed Impressions: Service Date/Time: Saturday, April 08, 2017 14:20 - CONCLUSION: No hemodynamically significant stenosis. Geraldo Brown MD PE at Discharge awake and alert, oriented x 3 anicteric lungs clear regular rhythm abdomen- flabby soft, n guarding extremities no edema neuro exam- non focal Pt update on day of discharge awake and alert no swallowing difficulties Hospital Course Iron deficiency- S/P IV Venofer. on Iron supplements Hematology ff. GI work up in progress. OP ff up with Hematology- Dr. Rodríguez continue on Fe s04 325 mg po bid S/P EGD- with esophagieal stricture post dilatation and esophagitis on PPI daily History of Anxiety disorder. on Xanax 2 mg tid per patient - reviewed meds from previous visits- she was only on 0.5 mg po tid prn will start Xanax 0.125 mg po tid history fo seizure disorder- continue on Keppra 750 mg po bid History of hypertension- on Amlodipine 10 mg daily, Echo unremarkable PCP- Dr. Sanon- OP ff up per patient denies chronic alcohol use/denies substance abuse OP ff up with Hematology OP ff up with GI CM consult- needs help with transportation home Pt Condition on Discharge: Stable Discharge Disposition: Discharge Home Discharge Time: <= 30 minutes Discharge Instructions DIET: Follow Instructions for: Heart Healthy Diet Speech Therapy-Diet Recommends: Regular Activities you can perform: Weight Bearing as Basilio Follow up Referrals: Gastroenterology - 3 Months with Bladimir Peraza MD Oncology/Hematology - 3 Weeks with Emmy Rodríguez MD PCP Follow-up - 2 Months with Peter New Medications: Amlodipine (Norvasc) 10 Mg Tab 10 MG PO DAILY for HTN MDD 10 for 30 Days, #30 TAB once daily Ferrous Sulfate (Ferosul) 325 Mg (65 Mg Iron) Tablet 325 MG PO BID for RAD for 30 Days, #60 UNITS 3 Refills Levetiracetam (Keppra) 250 Mg Tab 250 MG PO Q12HR for SZ for 30 Days, #30 TAB 1 Refill Continued Medications: Aspirin (Aspirin) 81 Mg Chew 81 MG CHEW DAILY, TAB 0 Refills Levetiracetam (Keppra) 500 Mg Tab 500 MG PO BID for Control Seizures, #60 TAB 0 Refills Discontinued Medications: Alprazolam (Alprazolam) 2 Mg Tab 2 MG PO Q8H PRN for ANXIETY, TAB 0 Refills True Nath MD Apr 12, 2017 10:10
[2017-04-12] MEDS ORDERED: ALPR.25 PO (10:12)
[2017-04-12] MEDS ORDERED: PROT40TA PO (10:19)
[2017-04-12] MEDS ORDERED: PANTOPRAZOLE SOD 40 MG DELAYED RELEASE TAB PO SCH (10:30)
[2017-04-12 12:21] VITALS: BP 140/73; PULSE 75; RESP 18; TEMP 98.6; O2SAT 100
[2017-04-12 16:28] VITALS: BP 101/61; PULSE 92; RESP 18; TEMP 99.6; O2SAT 97
== END 2017-04-12 17:03 | disposition home or self-care (01) | DRG 812 ==
LOC: NEPE 07:33 → NEDA 12:03 → NEPFCDU 13:20 → OBSVTOIN 04-09 11:31 → N05A 04-09 16:16
PROVIDERS: ADMIT Internal Medicine; ATTEND Internal Medicine
PROC: 0DB38ZX Excision of Lower Esophagus, Via Natural or Artificial Opening Endoscopic, Diagnostic (ICD-10-PCS; 2017-04-11)
PROC: 0DB68ZX Excision of Stomach, Via Natural or Artificial Opening Endoscopic, Diagnostic (ICD-10-PCS; 2017-04-11)
PROC: 0D758ZZ Dilation of Esophagus, Via Natural or Artificial Opening Endoscopic (ICD-10-PCS; principal; 2017-04-11 11:05)
DX: D50.9 Iron deficiency anemia, unspecified (principal); F11.20 Opioid dependence, uncomplicated; I10 Essential (primary) hypertension; R41.82 Altered mental status, unspecified; J44.9 Chronic obstructive pulmonary disease, unspecified; G40.909 Epilepsy, unspecified, not intractable, without status epilepticus; E66.9 Obesity, unspecified; K22.2 Esophageal obstruction; K29.70 Gastritis, unspecified, without bleeding; K44.9 Diaphragmatic hernia without obstruction or gangrene; R51 Headache; R19.7 Diarrhea, unspecified; K21.0 Gastro-esophageal reflux disease with esophagitis; M54.9 Dorsalgia, unspecified; G89.29 Other chronic pain; R29.6 Repeated falls; F32.9 Major depressive disorder, single episode, unspecified; F41.9 Anxiety disorder, unspecified; F10.10 Alcohol abuse, uncomplicated; Y90.0 Blood alcohol level of less than 20 mg/100 ml; W19.XXXA Unspecified fall, initial encounter; Y92.009 Unspecified place in unspecified non-institutional (private) residence as the place of occurrence of the external cause; Z68.30 Body mass index [BMI] 30.0-30.9, adult; Z79.82 Long term (current) use of aspirin; Z86.14 Personal history of Methicillin resistant Staphylococcus aureus infection; Z86.718 Personal history of other venous thrombosis and embolism; Z87.891 Personal history of nicotine dependence; Z88.2 Allergy status to sulfonamides
CPT/HCPCS: 70450; 72125; 74250; 80048; 80053; 80177; 80307; 81001; 82607; 82728; 82746; 83540; 83550; 84443; 85014; 85018; 85025; 85610; 88305; 88312; 93005; 93225; 93226; 93306; 93880; 94150; 94640; 94664; 95819; 96360; 96361; C1769; G0378; J1756; J7030; J7050; P9612